=== PATIENT | female | born 1940 | race Caucasian/White ===

== ENCOUNTER → 2016-05-03 | Outpatient (CLI) | payer MEDICARE ==
--- NOTE | 2016-05-03 09:25 | BD ---
EXAMINATION TYPE: MG DEXA axial skeleton. DATE OF EXAM: 05/03/2016 8:37 AM COMPARISON: NONE CLINICAL HISTORY: Height: 66 IN Weight: 248 LBS FRAX RISK QUESTIONS: Alcohol (3 or more units per day): NO Family History (Parent hip fracture): NO Glucocorticoids (More than 3mos): NO (Ex: prednisone, prednisolone, methylprednisolone, dexamethasone, and hydrocortisone). History of Fracture in Adulthood: YES LEFT FOOT Secondary Osteoporosis: 1. Type 1 Diabetes: NO 2. Hyperthyroidism: NO 3. Menopause before 45: NO 4. Malnutrition: NO 5. Chronic liver disease: NO Rheumatoid Arthritis: NO Current Tobacco Use: NO RISK FACTORS HISTORY OF: Other Fractures since Age 50: YES LEFT FOOT When: AGE 66 Family History of Osteoporosis: NO Active: YES Postmenopausal woman: AGE 51 Take estrogen and/or progesterone medications: NOT NOW How long: AGE 51 - 66 MEDICATIONS: Additional Medications: VIT D, VIT C, PRADAXA, ATENOLOL, BIOTIN, ECHINECEA, GLUCOSAMINE EXAM MEASUREMENTS: Bone mineral densitometry was performed using the [employer] System. Bone mineral density as measured about the Lumbar spine is: ----- L1-L4(G/cm2): 1.401 T Score Values are as follows: ----- L2: 3.2 ----- L3: 2.5 ----- L4: 1.2 ----- L1-L4: 1.8 Bone mineral density has: Increased 5.3% since study of: 12/22/2010 Bone mineral density about the R hip (g/cm2): 0.978 Bone mineral density about the L hip (g/cm2): 1.032 T Score values are as follows: -----R Neck: -0.4 -----L Neck: 0.0 -----R Intertrochanter: -0.3 -----L Intertrochanter: 0.5 Bone mineral density has: Decreased -8.6% since study of: 12/22/2010 IMPRESSION: Normal (Values between +1 and -1 indicate normal bone mass) Fracture risk: Major osteoporotic fracture: 11.9% Hip fracture: 1.2% NOTE: T-SCORE=SD OF THE YOUNG ADULT MEAN.
--- NOTE | 2016-05-04 11:25 | MM ---
Reason for exam: screening (asymptomatic). Last mammogram was performed 2 years and 6 months ago. History: Patient is postmenopausal. Benign excisional biopsy of the left breast, April 2002. Took estrogen for 17 years 7 months. Physical Findings: A clinical breast exam by your physician is recommended on an annual basis and results should be correlated with mammographic findings. MG 3D Screening Mammo W/Cad Bilateral CC, MLO, and XCCL view(s) were taken. Prior study comparison: November 03, 2013, bilateral MG screening mammo w CAD. October 30, 2012, bilateral digital screening mammo w/CAD. There are scattered fibroglandular densities. No significant changes when compared with prior studies. ASSESSMENT: Benign, BI-RAD 2 RECOMMENDATION: Routine screening mammogram of both breasts in 1 year.
== END | disposition home or self-care (01) ==
LOC: RADMAMWWP 07:52
PROVIDERS: ATTEND Internal Medicine
DX: Z12.31 Encounter for screening mammogram for malignant neoplasm of breast (principal); Z78.0 Asymptomatic menopausal state
CPT/HCPCS: 77080; 77063; G0202

== ENCOUNTER 2016-06-01 06:56 | Day surgery (SDC) | payer MEDICARE ==
[2016-05-29 15:00] VITALS: BMI 37.5
[~2016-06-01 06:56] MED LIST: LACTATED RINGERS 1,000 ML IV SCH; LIDOCAINE 1% 20 ML VIAL (10MG/ML) FOR IV START INTRADERMA PRN
[2016-06-01 07:19] VITALS: RESP 16; TEMP 97
[2016-06-01] MEDS ORDERED: PROPOFOL 10 MG/ML 20 ML VIAL IV ONE (07:42)
--- NOTE | 2016-06-01 07:43 | P.GSHP ---
History of Present Illness H&P Date: 06/01/16 Chief Complaint: Screening colonoscopy This a 76-year-old female referred from Dr. Enriquez. Patient presents today for screening colonoscopy. The patient is unsure of when her last colonoscopy was. She says it's approximately 6-10 years ago. - Constitutional Constitutional: Reports as per HPI Past Medical History Past Medical History: Atrial Fibrillation, GERD/Reflux, Hypertension, Skin Disorder Additional Past Medical History / Comment(s): HX OF PSORIASIS, History of Any Multi-Drug Resistant Organisms: None Reported Past Surgical History: Cholecystectomy, Hernia Repair, Hysterectomy, Orthopedic Surgery Additional Past Surgical History / Comment(s): LEFT FOOT ORIF, MAYA CATARACTS Past Anesthesia/Blood Transfusion Reactions: Postoperative Nausea & Vomiting ( PONV) Past Psychological History: No Psychological Hx Reported Smoking Status: Former smoker Past Alcohol Use History: None Reported Additional Past Alcohol Use History / Comment(s): QUIT SMOKING AGE 30, (1969) SMOKED LESS THAN 1PPD FROM TEEN Past Drug Use History: None Reported - Past Family History Mother Family Medical History: No Reported History Medications and Allergies Home Medications Medication Instructions Recorded Confirmed Type Atenolol 25 mg PO HS 01/05/16 06/01/16 History Dabigatran [Pradaxa] 150 mg PO BID 01/05/16 06/01/16 History Echinacea 400 mg PO DAILY 02/03/16 06/01/16 History Multivitamins, Thera [Multivitamin] 1 tab PO DAILY 02/03/16 06/01/16 History Allergies Allergy/AdvReac Type Severity Reaction Status Date / Time No Known Allergies Allergy Verified 05/29/16 14:53 Surgical - Exam Vital Signs Temp Pulse Resp BP Pulse Ox 97.0 F L 71 16 146/74 99 06/01/16 07:17 06/01/16 07:17 06/01/16 07:17 06/01/16 07:17 06/01/16 07:17 - General well developed, no distress - Eyes PERRL - ENT normal pinna - Neck no masses - Respiratory normal expansion - Cardiovascular Rhythm: regular - Abdomen Abdomen: soft, non tender Assessment and Plan Plan: We'll perform screening colonoscopy.
--- NOTE | 2016-06-01 08:03 | P.OP ---
Date of Procedure: 06/01/16 Preoperative Diagnosis: Screening colonoscopy Postoperative Diagnosis: Diverticulosis Internal hemorrhoids Procedure(s) Performed: Colonoscopy Anesthesia: MAC Surgeon: Chandler Tna Pathology: none sent Condition: stable Disposition: PACU Description of Procedure: The patient's placed on the endoscopy table in the lateral position. She received IV sedation. Digital rectal exam was performed which revealed internal hemorrhoids.. The flexible colonoscope was then placed patient anus passed throughout the entire colon. The ileocecal valve was visualized. The cecum and ascending and transverse colon appeared normal. In the descending and sigmoid colon there is mild diverticular changes. There is no evidence of diverticulitis. The scope was then brought back into the rectum and this appeared normal. There were no polyps seen. Scope was then withdrawn and there was some internal hemorrhoids noted. The scope was withdrawn for patient.
[2016-06-01 08:40] VITALS: BP 129/77; PULSE 78
== END 2016-06-01 09:07 | disposition home or self-care (01) ==
LOC: ORWHC2ENDO 06:56
PROVIDERS: ATTEND Surgery
DX: Z12.11 Encounter for screening for malignant neoplasm of colon (principal); K57.30 Diverticulosis of large intestine without perforation or abscess without bleeding; K64.8 Other hemorrhoids; I10 Essential (primary) hypertension; E78.5 Hyperlipidemia, unspecified; I48.91 Unspecified atrial fibrillation; I49.9 Cardiac arrhythmia, unspecified; K21.9 Gastro-esophageal reflux disease without esophagitis; Z79.01 Long term (current) use of anticoagulants; Z79.891 Long term (current) use of opiate analgesic; Z79.899 Other long term (current) drug therapy; Z87.891 Personal history of nicotine dependence
CPT/HCPCS: G0121; J2704

== ENCOUNTER → 2017-08-09 | Outpatient (CLI) | payer MEDICARE | END | disposition home or self-care (01) | LOC: LABWHC1 10:27 | PROVIDERS: ATTEND Ophthalmology | DX: M31.6 Other giant cell arteritis (principal) | CPT/HCPCS: 36415; 85652; 86140 ==

== ENCOUNTER → 2019-09-10 | Outpatient (CLI) | payer MEDICARE ==
--- NOTE | 2019-09-11 09:52 | XR ---
EXAM TYPE: LUMBAR SPINE X RAY SERIES COMPARISON: NONE HISTORY: Low back pain TECHNIQUE: 3 views are submitted. FINDINGS: Alignment is anatomic. The pedicles are intact. The transverse processes are intact. There is no s pondylolisthesis. There is diffuse osteopenia. There is multilevel degenerative disc disease most ma rked at L2-S1. Degenerative disc disease thoracolumbar spine and lower thoracic region also noted. Mo tion artifact limits the exam. Vascular calcifications of the aorta. IMPRESSION: 1. Limited exam due to severe motion artifact demonstrates diffuse osteopenia and multilevel severe d egenerative disc disease. Correlate with MRI as clinically warranted. Suspect canal stenosis and fora ernesto encroachment and the lower lumbar spine..
== END | disposition home or self-care (01) ==
LOC: RADXRMAIN 14:01
PROVIDERS: ATTEND Internal Medicine Geriatric Medicine
DX: M51.36 Other intervertebral disc degeneration, lumbar region (principal); M85.88 Other specified disorders of bone density and structure, other site
CPT/HCPCS: 72100

== ENCOUNTER 2019-10-09 15:36 | Inpatient (IN) | payer MEDICARE ==
--- NOTE | 2019-10-09 16:00 | ED ---
Altered Mental Status HPI - General Chief Complaint: Altered Mental Status Stated Complaint: Altered Mental Status Time Seen by Provider: 10/09/19 16:05 - History of Present Illness Initial Comments: Patient is a 79-year-old female with past medical history of A. fib, hypertension who presents to the emergency department with reported altered mental status. She lives at [facility] in an independent apartment. Daughter last talked around 8:00 last night. also lives at the facility however in assisted care portion. He had a doctor's appointment today. The did not show up for his doctor's appointment and this was not normal for her. When they checked on her apartment they found her confused, sitting in a chair that she normally sleeps in. She had some urinary incontinence and there was a towel in her underwear. She was able to get up and ambulate to the stretcher. I spoke with the patient's daughter who stated that she was started on a bunch of new medications several weeks ago for sciatica pain. These include Restoril, [id number]-[id number] sleep aid, tramadol, baclofen and Motrin. The patient states that there is possibility that she could have taken too much however not in an attempt to harm herself. Patient does follow all commands. Does continue to clean of low back pain. Denies any falls or head trauma. Patient is on Pradaxa. No external signs of trauma. No reported fevers or chills. No unilateral weakness. Daughter states that her mother had an episode several weeks ago which was similar however they never sought care. Patient eventually improved and stated that she may have taken too many of the medications however the daughter did not remove them from her. The remainder patient has limited because the patient's current condition - Related Data Home Medications Medication Instructions Recorded Confirmed Atenolol 25 mg PO DAILY 01/05/16 10/09/19 Baclofen [Lioresal] 10 mg PO BID 10/09/19 10/09/19 Dabigatran [Pradaxa] 150 mg PO BID 10/09/19 10/09/19 Ibuprofen [Motrin] 600 mg PO TID PRN 10/09/19 10/09/19 PARoxetine [Paxil] 10 mg PO DAILY 10/09/19 10/09/19 Temazepam [Restoril] 15 mg PO HS PRN 10/09/19 10/09/19 amLODIPine [Norvasc] 5 mg PO DAILY 10/09/19 10/09/19 traMADol HCL 50 mg PO BID 10/09/19 10/09/19 Previous Rx's Medication Instructions Recorded Baclofen [Lioresal] 5 mg PO BID PRN #60 tab 10/11/19 HYDROcodone/APAP 5-325MG [Jay Em 1 each PO Q4HR PRN #0 tab 10/11/19 5-325] Allergies Allergy/AdvReac Type Severity Reaction Status Date / Time No Known Allergies Allergy Verified 10/09/19 17:39 Review of Systems ROS Statement: Those systems with pertinent positive or pertinent negative responses have been documented in the HPI. ROS Other: All systems not noted in ROS Statement are negative. Past Medical History Past Medical History: Atrial Fibrillation, GERD/Reflux, Hypertension, Skin Disorder Additional Past Medical History / Comment(s): HX OF PSORIASIS, History of Any Multi-Drug Resistant Organisms: None Reported Past Surgical History: Cholecystectomy, Hernia Repair, Hysterectomy, Orthopedic Surgery Additional Past Surgical History / Comment(s): LEFT FOOT ORIF, MAYA CATARACTS Past Anesthesia/Blood Transfusion Reactions: Postoperative Nausea & Vomiting (PONV) Past Psychological History: No Psychological Hx Reported Smoking Status: Former smoker Past Alcohol Use History: None Reported Additional Past Alcohol Use History / Comment(s): QUIT SMOKING AGE 30, (1970) SMOKED LESS THAN 1PPD FROM TEEN Past Drug Use History: None Reported - Past Family History Mother Family Medical History: No Reported History Father Additional Family Medical History / Comment(s): Father at age 87 from COPD. Sister(s) Additional Family Medical History / Comment(s): Patient is a total of 4 sisters and one aside from COPD. Patient does not have any brothers. Patient has 4 daughters and one has gallbladder disease and fibromyalgia. Other daughters with no major medical problems. Patient has one son with no major medical problems. General Exam Limitations: altered mental status General appearance: in no apparent distress, lethargic Head exam: Present: atraumatic, normocephalic Eye exam: Present: PERRL (sluggish), EOMI ENT exam: Present: mucous membranes dry Neck exam: Present: normal inspection. Absent: tenderness, meningismus, lymphadenopathy Respiratory exam: Present: normal lung sounds bilaterally. Absent: respiratory distress, wheezes, rales, rhonchi, stridor Cardiovascular Exam: Present: regular rate, normal rhythm, normal heart sounds. Absent: systolic murmur, diastolic murmur, rubs, gallop, clicks GI/Abdominal exam: Present: soft, normal bowel sounds. Absent: distended, tenderness, guarding, rebound, rigid Back exam: Present: normal inspection Neurological exam: Present: altered Psychiatric exam: Present: flat affect Skin exam: Present: warm, dry, intact, normal color. Absent: rash Course Vital Signs 10/09/19 10/09/19 10/09/19 16:03 16:08 18:12 Temperature 97.8 F Pulse Rate 96 80 64 Respiratory 18 16 15 Rate Blood Pressure 170/116 154/89 167/85 O2 Sat by Pulse 95 95 97 Oximetry Medical Decision Making - Medical Decision Making Upon arrival the patient is placed in room 3. There are history and physical exam was performed. Patient is able to be aroused. She knows that she is at the hospital however appears very sedated. She follows all commands. Patient is mildly hypertensive. Patient is straight cathed for urine and does have an output of 1000 mL. Artery studies are conducted. Sodium mildly low at 133. Urine is positive for benzodiazepines. Blood is negative for salicylates, acetaminophen and alcohol. Urine is clear of infection. CT of the brain demonstrates no acute intracranial hemorrhage or midline shift. Mild to mo derate diffuse cerebral atrophy. I did do a CT the patient's lumbar spinous she was started on medications recently for her back pain which demonstrated multilevel general changes with no acute findings. Chest x-ray demonstrates myocardial megaly without acute pulmonary process. I did reevaluate the patient. Does take sternal rub to awaken the patient. She does admit that she may have taken "too many" of her meds and does apologize. Patient is still heavily sedated and I feel she is not ready for discharge. I did recommend observation overnight for which the patient's daughter did agree. Patient will be admitted to Dr. Bailey. Patient awaiting a bed on the floor - Lab Data Result diagrams: 10/10/19 05:31 10/11/19 06:19 Lab Results 10/09/19 10/09/19 10/09/19 Range/Units 16:18 16:18 16:18 WBC 3.5 L (3.8-10.6) k/uL RBC 4.34 (3.80-5.40) m/uL Hgb 13.2 (11.4-16.0) gm/dL Hct 40.1 (34.0-46.0) % MCV 92.4 (80.0-100.0) fL MCH 30.4 (25.0-35.0) pg MCHC 32.9 (31.0-37.0) g/dL RDW 13.4 (11.5-15.5) % Plt Count 258 (150-450) k/uL Neutrophils % 61 % Lymphocytes % 22 % Monocytes % 9 % Eosinophils % 4 % Basophils % 1 % Neutrophils # 2.1 (1.3-7.7) k/uL Lymphocytes # 0.8 L (1.0-4.8) k/uL Monocytes # 0.3 (0-1.0) k/uL Eosinophils # 0.1 (0-0.7) k/uL Basophils # 0.0 (0-0.2) k/uL PT 9.7 (9.0-12.0) sec INR 0.9 (<1.2) APTT 20.6 L (22.0-30.0) sec Sodium (137-145) mmol/L Potassium (3.5-5.1) mmol/L Chloride (98-107) mmol/L Carbon Dioxide (22-30) mmol/L Anion Gap mmol/L BUN (7-17) mg/dL Creatinine (0.52-1.04) mg/dL Est GFR (CKD-EPI)AfAm (>60 ml/min/1.73 sqM) Est GFR (CKD-EPI)NonAf (>60 ml/min/1.73 sqM) Glucose (74-99) mg/dL Plasma Lactic Acid Anthony (0.7-2.0) mmol/L Calcium (8.4-10.2) mg/dL Total Bilirubin (0.2-1.3) mg/dL AST (14-36) U/L ALT (4-34) U/L Alkaline Phosphatase (38-126) U/L Ammonia (<30) umol/L Creatine Kinase (30-135) U/L Troponin I (0.000-0.034) ng/mL Total Protein (6.3-8.2) g/dL Albumin (3.5-5.0) g/dL Urine Color Light Yellow Urine Appearance Clear (Clear) Urine pH 6.5 (5.0-8.0) Ur Specific Brohard 1.004 (1.001-1.035) Urine Protein Negative (Negative) Urine Glucose (UA) Negative (Negative) Urine Ketones Negative (Negative) Urine Blood Negative (Negative) Urine Nitrite Negative (Negative) Urine Bilirubin Negative (Negative) Urine Urobilinogen <2.0 (<2.0) mg/dL Ur Leukocyte Esterase Negative (Negative) Salicylates mg/dL Urine Opiates Screen Not Detected (NotDetected) Ur Oxycodone Screen Not Detected (NotDetected) Urine Methadone Screen Not Detected (NotDetected) Ur Propoxyphene Screen Not Detected (NotDetected) Acetaminophen ug/mL Ur Barbiturates Screen Not Detected (NotDetected) U Tricyclic Antidepress Not Detected (NotDetected) Ur Phencyclidine Scrn Not Detected (NotDetected) Ur Amphetamines Screen Not Detected (NotDetected) U Methamphetamines Scrn Not Detected (NotDetected) U Benzodiazepines Scrn Detected H (NotDetected) Urine Cocaine Screen Not Detected (NotDetected) U Marijuana (THC) Screen Not Detected (NotDetected) Serum Alcohol mg/dL Coronavirus (PCR) (Not Detected) 10/09/19 10/09/19 10/09/19 Range/Units 16:18 16:18 16:18 WBC (3.8-10.6) k/uL RBC (3.80-5.40) m/uL Hgb (11.4-16.0) gm/dL Hct (34.0-46.0) % MCV (80.0-100.0) fL MCH (25.0-35.0) pg MCHC (31.0-37.0) g/dL RDW (11.5-15.5) % Plt Count (150-450) k/uL Neutrophils % % Lymphocytes % % Monocytes % % Eosinophils % % Basophils % % Neutrophils # (1.3-7.7) k/uL Lymphocytes # (1.0-4.8) k/uL Monocytes # (0-1.0) k/uL Eosinophils # (0-0.7) k/uL Basophils # (0-0.2) k/uL PT (9.0-12.0) sec INR (<1.2) APTT (22.0-30.0) sec Sodium 133 L (137-145) mmol/L Potassium 4.1 (3.5-5.1) mmol/L Chloride 100 (98-107) mmol/L Carbon Dioxide 27 (22-30) mmol/L Anion Gap 6 mmol/L BUN 11 (7-17) mg/dL Creatinine 0.44 L (0.52-1.04) mg/dL Est GFR (CKD-EPI)AfAm >90 (>60 ml/min/1.73 sqM) Est GFR (CKD-EPI)NonAf >90 (>60 ml/min/1.73 sqM) Glucose 113 H (74-99) mg/dL Plasma Lactic Acid Anthony 0.9 (0.7-2.0) mmol/L Calcium 9.0 (8.4-10.2) mg/dL Total Bilirubin 0.4 (0.2-1.3) mg/dL AST 32 (14-36) U/L ALT 37 H (4-34) U/L Alkaline Phosphatase 66 (38-126) U/L Ammonia <9 (<30) umol/L Creatine Kinase 34 (30-135) U/L Troponin I <0.012 (0.000-0.034) ng/mL Total Protein 5.8 L (6.3-8.2) g/dL Albumin 3.5 (3.5-5.0) g/dL Urine Color Urine Appearance (Clear) Urine pH (5.0-8.0) Ur Specific Brohard (1.001-1.035) Urine Protein (Negative) Urine Glucose (UA) (Negative) Urine Ketones (Negative) Urine Blood (Negative) Urine Nitrite (Negative) Urine Bilirubin (Negative) Urine Urobilinogen (<2.0) mg/dL Ur Leukocyte Esterase (Negative) Salicylates <1.0 mg/dL Urine Opiates Screen (NotDetected) Ur Oxycodone Screen (NotDetected) Urine Methadone Screen (NotDetected) Ur Propoxyphene Screen (NotDetected) Acetaminophen <10.0 ug/mL Ur Barbiturates Screen (NotDetected) U Tricyclic Antidepress (NotDetected) Ur Phencyclidine Scrn (NotDetected) Ur Amphetamines Screen (NotDetected) U Methamphetamines Scrn (NotDetected) U Benzodiazepines Scrn (NotDetected) Urine Cocaine Screen (NotDetected) U Marijuana (THC) Screen (NotDetected) Serum Alcohol <10 mg/dL Coronavirus (PCR) (Not Detected) 10/09/19 10/10/19 10/10/19 Range/Units 18:01 05:31 05:31 WBC 4.3 (3.8-10.6) k/uL RBC 4.20 (3.80-5.40) m/uL Hgb 12.5 (11.4-16.0) gm/dL Hct 38.8 (34.0-46.0) % MCV 92.5 (80.0-100.0) fL MCH 29.7 (25.0-35.0) pg MCHC 32.1 (31.0-37.0) g/dL RDW 13.3 (11.5-15.5) % Plt Count 247 (150-450) k/uL Neutrophils % 76 % Lymphocytes % 13 % Monocytes % 6 % Eosinophils % 2 % Basophils % 0 % Neutrophils # 3.3 (1.3-7.7) k/uL Lymphocytes # 0.6 L (1.0-4.8) k/uL Monocytes # 0.3 (0-1.0) k/uL Eosinophils # 0.1 (0-0.7) k/uL Basophils # 0.0 (0-0.2) k/uL PT (9.0-12.0) sec INR (<1.2) APTT (22.0-30.0) sec Sodium 129 L (137-145) mmol/L Potassium 3.8 (3.5-5.1) mmol/L Chloride 98 (98-107) mmol/L Carbon Dioxide 28 (22-30) mmol/L Anion Gap 3 mmol/L BUN 9 (7-17) mg/dL Creatinine 0.39 L (0.52-1.04) mg/dL Est GFR (CKD-EPI)AfAm >90 (>60 ml/min/1.73 sqM) Est GFR (CKD-EPI)NonAf >90 (>60 ml/min/1.73 sqM) Glucose 118 H (74-99) mg/dL Plasma Lactic Acid Anthony (0.7-2.0) mmol/L Calcium 8.3 L (8.4-10.2) mg/dL Total Bilirubin (0.2-1.3) mg/dL AST (14-36) U/L ALT (4-34) U/L Alkaline Phosphatase (38-126) U/L Ammonia (<30) umol/L Creatine Kinase (30-135) U/L Troponin I (0.000-0.034) ng/mL Total Protein (6.3-8.2) g/dL Albumin (3.5-5.0) g/dL Urine Color Urine Appearance (Clear) Urine pH (5.0-8.0) Ur Specific Brohard (1.001-1.035) Urine Protein (Negative) Urine Glucose (UA) (Negative) Urine Ketones (Negative) Urine Blood (Negative) Urine Nitrite (Negative) Urine Bilirubin (Negative) Urine Urobilinogen (<2.0) mg/dL Ur Leukocyte Esterase (Negative) Salicylates mg/dL Urine Opiates Screen (NotDetected) Ur Oxycodone Screen (NotDetected) Urine Methadone Screen (NotDetected) Ur Propoxyphene Screen (NotDetected) Acetaminophen ug/mL Ur Barbiturates Screen (NotDetected) U Tricyclic Antidepress (NotDetected) Ur Phencyclidine Scrn (NotDetected) Ur Amphetamines Screen (NotDetected) U Methamphetamines Scrn (NotDetected) U Benzodiazepines Scrn (NotDetected) Urine Cocaine Screen (NotDetected) U Marijuana (THC) Screen (NotDetected) Serum Alcohol mg/dL Coronavirus (PCR) Not Detected (Not Detected) - EKG Data EKG Comments: EKG demonstrates a normal sinus rhythm with a ventricular rate of 90. UT interval 152. QRS 108. QTC of 435. Incomplete left bundle-branch block. No acute ST segment elevations or depressions. No widening of the QRS. Disposition Clinical Impression: Acute anoxic encephalopathy, Medication adverse effect Disposition: ADMITTED IP TO THIS [facility] Condition: Stable Is patient prescribed a controlled substance at d/c from ED?: No Decision to Admit Reason: Admit from EC Decision Date: 10/09/19 Decision Time: 17:53
[2019-10-09] MEDS ORDERED: SODIUM CHLORIDE 0.9% 500 ML 500 ML IV ONE (16:02)
[2019-10-09 16:31] LABS: Basophils % (A) 1 %; Eosinophils # (A) 0.1 k/uL (0-0.7); Eosinophils % (A) 4 %; HCT 40.1 % (34.0-46.0); HGB 13.2 gm/dL (11.4-16.0); Lymphocytes # (A) 0.8 k/uL (1.0-4.8); Lymphocytes % (A) 22 %; MCH 30.4 pg (25.0-35.0); MCHC 32.9 g/dL (31.0-37.0); MCV 92.4 fL (80.0-100.0); Mean Platelet Volume 6.1; Monocytes # (A) 0.3 k/uL (0-1.0); Monocytes % (A) 9 %; Neutrophils # (A) 2.1 k/uL (1.3-7.7); Neutrophils % (A) 61 %; Platelet Count 258 k/uL (150-450); RBC 4.34 m/uL (3.80-5.40); RDW 13.4 % (11.5-15.5); WBC 3.5 k/uL (3.8-10.6)
[2019-10-09 16:33] LABS: Appearance,Urine Clear (Clear); Bilirubin,Urine Negative (Negative); Blood,Urine Negative (Negative); Color,Urine Light Yellow; Glucose,Urine (UA) Negative (Negative); Ketones,Urine Negative (Negative); Leukocyte Esterase,Urine Negative (Negative); Nitrite,Urine Negative (Negative); PH, Urine 6.5 (5.0-8.0); Protein,Urine Negative (Negative); Specific Gravity,Urine 1.004 (1.001-1.035); Urobilinogen,Urine <2.0 mg/dL (<2.0)
--- NOTE | 2019-10-09 16:40 | CT ---
EXAMINATION TYPE: CT brain wo con DATE OF EXAM: 10/09/2019 HISTORY: Lethargic, ams CT DLP: 1098.4 mGycm. Automated Exposure Control for Dose Reduction was Utilized. TECHNIQUE: CT scan of the head is performed without contrast. COMPARISON: None. FINDINGS: There is no acute intracranial hemorrhage or midline shift identified. There is diffuse v entricular and sulcal prominence consistent with diffuse cerebral atrophy greatest over bilateral fro ntal lobes. There is low-attenuation in the periventricular white matter consistent with chronic sma ll vessel ischemic change. The globes are intact and the visualized sinuses are clear. IMPRESSION: No acute intracranial hemorrhage or midline shift. There is mild to moderate diffuse ce rebral atrophy and mild chronic small vessel ischemic change noted.
[2019-10-09 16:44] LABS: Lactic Acid, Venous 0.9 mmol/L (0.7-2.0)
--- NOTE | 2019-10-09 16:44 | CT ---
EXAMINATION TYPE: CT lumbar spine wo con DATE OF EXAM: 10/09/2019 4:36 PM COMPARISON: Lumbar spine x-ray September 10, 2019. HISTORY: Lethargic, ams, weakness and pain. CT DLP: 1591.6 mGycm Automated exposure control for dose reduction was used. Unenhanced CT of the lumbar spine was performed. Bone and soft tissue window settings are submitted as well as coronal and sagittal reconstructions. There are 5 lumbar type vertebra redemonstrated. Slight exaggerated lumbar lordosis is present. Moder ate disc space narrowing with vacuum disc phenomenon L2-L3 level redemonstrated. Vertebral body heigh ts are maintained. No acute fracture or dislocation. Mild to moderate multilevel anterior and lateral spurring. Axial images at T12-L1 and L1-L2 levels are within normal limits. L2-L3: Mild broad disc bulge minimally effaces the anterior thecal sac axial image 28.. L3-L4: [id number] broad disc bulge effaces the anterior thecal sac. Cyun-tj-[id number] facet dege nerative changes identified hypertrophy based posterior lateral thecal sac axial image 38. Mild bilat eral anterior inferior neural foraminal narrowing. L4-L5: Moderate facet arthropathy bilaterally. Moderate broad disc bulge effacing the anterior thecal sac. Vgqg-[id number]-afgsjvip right-sided and anterior inferior neural foraminal narrowing. L5-S1: Moderate facet degenerative changes bilaterally. Spinal canal preserved. Patent bilateral neur al foramina. Mild to moderate calcified plaque of the abdominal aorta. IMPRESSION: Multilevel degenerative changes as detailed above. No acute findings identified.
[2019-10-09 16:45] LABS: ALT 37 U/L (4-34); AST 32 U/L (14-36); Acetaminophen <10.0 ug/mL; African American GFR (CKD) >90 (>60 ml/min/1.73 sqM); Albumin 3.5 g/dL (3.5-5.0); Alcohol <10 mg/dL; Alkaline Phosphatase 66 U/L (38-126); Anion Gap 6 mmol/L; Blood Urea Nitrogen 11 mg/dL (7-17); Carbon Dioxide 27 mmol/L (22-30); Chloride 100 mmol/L (98-107); Creatine Kinase 34 U/L (30-135); Glucose 113 mg/dL (74-99); Non-African American GFR(CKD) >90 (>60 ml/min/1.73 sqM); Potassium 4.1 mmol/L (3.5-5.1); Salicylate <1.0 mg/dL; Sodium 133 mmol/L (137-145); Total Bilirubin 0.4 mg/dL (0.2-1.3); Total Protein 5.8 g/dL (6.3-8.2)
[2019-10-09 16:50] LABS: INR 0.9 (<1.2); Prothrombin Time 9.7 sec (9.0-12.0)
--- NOTE | 2019-10-09 16:51 | XR ---
EXAMINATION TYPE: XR chest 2V DATE OF EXAM: 10/09/2019 COMPARISON: NONE HISTORY: Altered mental status and weakness. TECHNIQUE: Frontal and lateral views of the chest are obtained. FINDINGS: Low lung volumes. There is no focal air space opacity, pleural effusion, or pneumothorax se en. The cardiac silhouette size is mildly enlarged. Bilateral hilar prominence suggests product of u nderlying pulmonary hypertension, correlate clinically. The osseous structures are somewhat deminer alized. IMPRESSION: Mild cardiomegaly without acute pulmonary process.
[2019-10-09 16:54] LABS: Amphetamine Screen,Urine Not Detected (NotDetected); Barbiturate Screen,Urine Not Detected (NotDetected); Benzodiazepines Screen,Urine Detected (NotDetected); Cocaine Screen,Urine Not Detected (NotDetected); Methadone Screen, Urine Not Detected (NotDetected); Opiate Screen,Urine Not Detected (NotDetected); Oxycodone Screen, Urine Not Detected (NotDetected); Phencyclidine Screen,Urine Not Detected (NotDetected); Tricyclic Antidepressant,Urine Not Detected (NotDetected); Urn Cannabinoid Scrn Not Detected (NotDetected)
[2019-10-09 16:55] LABS: Partial Thromboplastin Time 20.6 sec (22.0-30.0)
[2019-10-09] MEDS ORDERED: NALOXONE 0.4 MG/ML 1 ML VIAL IV PRN (17:49)
[2019-10-09] MEDS: DABIGATRAN 150 MG CAP PO SCH (20:29)
[2019-10-09] MEDS: SODIUM CHLORIDE 0.9% 1,000 ML IV SCH (20:32)
[2019-10-09] MEDS ORDERED: KETOROLAC 30 MG/ML 1 ML VIAL IVP PRN ×2 (21:49→22:37)
[2019-10-09] MEDS: KETOROLAC 30 MG/ML 1 ML VIAL IVP PRN (22:52)
[2019-10-10] MEDS: KETOROLAC 30 MG/ML 1 ML VIAL IVP PRN (05:00)
[2019-10-10 06:28] LABS: Basophils % (A) 0 %; Eosinophils # (A) 0.1 k/uL (0-0.7); Eosinophils % (A) 2 %; HCT 38.8 % (34.0-46.0); HGB 12.5 gm/dL (11.4-16.0); Lymphocytes # (A) 0.6 k/uL (1.0-4.8); Lymphocytes % (A) 13 %; MCH 29.7 pg (25.0-35.0); MCHC 32.1 g/dL (31.0-37.0); MCV 92.5 fL (80.0-100.0); Mean Platelet Volume 6.2; Monocytes # (A) 0.3 k/uL (0-1.0); Monocytes % (A) 6 %; Neutrophils # (A) 3.3 k/uL (1.3-7.7); Neutrophils % (A) 76 %; Platelet Count 247 k/uL (150-450); RDW 13.3 % (11.5-15.5); WBC 4.3 k/uL (3.8-10.6)
[2019-10-10 06:31] LABS: African American GFR (CKD) >90 (>60 ml/min/1.73 sqM); Anion Gap 3 mmol/L; Blood Urea Nitrogen 9 mg/dL (7-17); Calcium 8.3 mg/dL (8.4-10.2); Carbon Dioxide 28 mmol/L (22-30); Chloride 98 mmol/L (98-107); Glucose 118 mg/dL (74-99); Non-African American GFR(CKD) >90 (>60 ml/min/1.73 sqM); Potassium 3.8 mmol/L (3.5-5.1); Sodium 129 mmol/L (137-145)
[2019-10-10] MEDS ORDERED: Acetaminophen-Codeine 300-30mg TAB PO PRN (08:02)
[2019-10-10] MEDS ORDERED: BACLOFEN 10 MG TAB PO PRN (08:02)
[2019-10-10] MEDS: HYDROcodone/APAP 5-325MG 1 EACH TAB PO PRN ×2 (08:56→16:44)
[2019-10-10] MEDS: SODIUM CHLORIDE 0.9% 1,000 ML IV SCH ×2 (08:57→20:08)
[2019-10-10] MEDS: atenoloL 25 MG TAB PO SCH (08:58)
[2019-10-10] MEDS: DABIGATRAN 150 MG CAP PO SCH ×2 (08:59→20:06)
[2019-10-10] MEDS ORDERED: amLODIPine 5 MG TAB PO SCH (09:00)
[2019-10-10] MEDS: PARoxetine 10 MG TAB PO SCH (09:03)
[2019-10-10] MEDS: dexAMETHasone 4 MG TAB PO SCH ×2 (09:03→20:06)
[2019-10-10 10:19] VITALS: RESP 16
[2019-10-10] MEDS ORDERED: amLODIPine 5 MG TAB PO STA (13:52)
--- NOTE | 2019-10-10 14:02 | P.HPIM ---
History of Present Illness H&P Date: 10/10/19 History of Present Illness This is a 79-year-old female patient of Dr. Bailey with past medical history of paroxysmal atrial fibrillation on Pradaxa, hypertension. Patient has been recently seen in the office secondary to lumbar back pain and started on steroids which patient states she completed as well as baclofen and tramadol. Patient states tramadol did not help her pain at all. She was also started on Restoril for sleep. She presented to [facility] emergency center due to altered mental status. She resides at [facility] in an independent apartment and cares for her with dementia but he is in assisted care. Patient did not show up for her 's doctor's appointment which was very unusual for her. Her daughter checked on her and she was found sitting in a chair that she normally sleeps in. She had some urinary incontine nce and there was a towel in her underwear. She was able to get up and ambulate to the stretcher for EMS. Patient was brought into [facility] emergency center for evaluation. Her initial blood pressure was 170/116, heart rate 96, pulse ox 95% on room air and afebrile. Patient was straight cathed with removal of 1000 ML's. Blood work revealed urine drug screen positive for benzodiazepines. Negative for salicylates, acetaminophen and alcohol level. Urine did not show any sign of UTI. CAT scan of the brain revealed no acute intracranial hemorrhage or midline shift. Mild to moderate diffuse cerebral atrophy with mild chronic ischemic changes. Chest x-ray showed mild cardiomegaly with without acute pulmonary process. Lumbar sacral CAT scan revealed multilevel degenerative changes. WBC 3.4, hemoglobin 13.2. Sodium 133, potassium 4.1, chloride 100, CO2 27, BUN 11 creatinine 0.44. Blood sugar 113. EKG was a sinus rhythm with no acute ST changes. Patient continued to be quite sedated while in the emergency center and was decided she would be placed on the MedSur floor for further evaluation. At the time of our evaluation, patient complains of lumbar pain and buttocks pain 10 out of 10 on the left side. She does not recall anything from yesterday. She does know that she was confused. Review of Systems Constitutional: No fever, no chills, no night sweats. No weight change. No weakness, fatigue, reports lethargy. No daytime sleepiness. EENT: No headache. No blurred vision or double vision, no loss of vision. No loss of Hearing, no ringing in the ears, no dizziness. No nasal drainage or congestion. No epistaxis. No sore throat. Lungs: No shortness of breath, cough, no sputum production. No wheezing. Cardiovascular: No chest pain, no lower extremity edema. No palpitations. No paroxysmal nocturnal dyspnea. No orthopnea. No lightheadedness or dizziness. No syncopal episodes. Abdominal: No abdominal pain. No nausea, vomiting. No diarrhea. No constipation. No bloody or tarry stools.. No loss of appetite. Genitourinary: No dysuria, increased frequency, urgency. Reports urinary retention. Denies loss of control of urination, defecation. Musculoskeletal: No myalgias. No muscle weakness, no gait dysfunction, no frequent falls. Reports severe lumbar back pain. No neck pain. Integumentary: No wounds, no lesions. No rash or pruritus. No unusual bruising. No change in hair or nails. Neurologic: No aphasia. No facial droop. Reports change in mentation. No head injury. No headache. No paralysis. No paresthesia. Psychiatric: No depression. No anxiety. No mood swings. Endocrine: No abnormal blood sugars. No weight change. No excessive sweating or thirst. No cold intolerance. Physical Examination Gen: This is a 79-year-old female. Patient is resting in bed and appears to be comfortable and in no acute distress. HEENT: Head is atraumatic, normocephalic. Pupils equal, round. Sclerae is anicteric. NECK: Supple. No JVD. No lymphadenopathy. No thyromegaly. LUNGS: Clear to auscultation. No wheezes or rhonchi. No intercostal retractions. HEART: Regular rate and rhythm. Systolic murmur. ABDOMEN: Soft. Bowel sounds are present. No masses. No tenderness. EXTREMITIES: No pedal edema. No calf tenderness. Dorsalis pedis +2 bilaterally. NEUROLOGICAL: Patient is awake, alert and oriented x3. Cranial nerves 2 through 12 are grossly intact. Upper and lower extremity strength normal bilaterally. Assessment and Plan 1. Uncontrolled lumbar pain secondary to multilevel degenerative disc disease. Patient will be started on dexamethasone 4 mg oral twice daily, Thompson 5 one every 4 hours as needed, continue Toradol IV, baclofen will be reduced to 5 mg twice daily. Tramadol will be discontinued. Physical therapy evaluation for safety at home. Pain management consult is in place but unavailable until Sunday. 2. Acute toxic metabolic encephalopathy secondary to medications: Combination of Restoril, baclofen, tramadol, steroid. Restoril will be completely discontinued. Reduced dose of baclofen and change tramadol to Thompson. Patient's mental status is back to baseline. 3. Paroxysmal atrial fibrillation. Continue Pradaxa 150 mg twice daily, atenolol 25 mg daily. 4. Uncontrolled hypertension. Continue Norvasc at increased dose of 10 mg daily. Continue atenolol. 5. Urinary retention status post straight cath for urinalysis with 1000 mL return. Monitor for urinary retention. 6. GI prophylaxis. Protonix. 7. DVT prophylaxis. Pradaxa. 8. COVID-19 infection not present. Patient placed as Observation status. Anticipate discharge home tomorrow. Discharge plan: Most likely return home on Sunday. Impression and plan of care have been directed as dictated by the signing physician. Kristie Garza nurse practitioner acting as scribe for signing physician. Past Medical History Past Medical History: Atrial Fibrillation, GERD/Reflux, Hypertension, Skin Disorder Additional Past Medical History / Comment(s): HX OF PSORIASIS, DDD, sciatic nerve pain History of Any Multi-Drug Resistant Organisms: None Reported Past Surgical History: Cholecystectomy, Hernia Repair, Hysterectomy, Orthopedic Surgery Additional Past Surgical History / Comment(s): LEFT FOOT ORIF, MAYA CATARACTS Past Anesthesia/Blood Transfusion Reactions: Postoperative Nausea & Vomiting (PONV) Smoking Status: Former smoker Additional Past Alcohol Use History / Comment(s): The patient smoked one pack per day for about 12 years. No marijuana, illicit drug use or alcohol use. She lives at home at [facility] as caregiver for her with dementia. - Past Family History Mother Family Medical History: No Reported History Additional Family Medical History / Comment(s): Mother at age 86 from coronary artery disease. Father Additional Family Medical History / Comment(s): Father at age 87 from COPD. Sister(s) Additional Family Medical History / Comment(s): Patient is a total of 4 sisters and one aside from COPD. Patient does not have any brothers. Patient has 4 daughters and one has gallbladder disease and fibromyalgia. Other daughters with no major medical problems. Patient has one son with no major medical problems. Medications and Allergies Home Medications Medication Instructions Recorded Confirmed Type Atenolol 25 mg PO DAILY 01/05/16 10/09/19 History Baclofen [Lioresal] 10 mg PO BID 10/09/19 10/09/19 History Dabigatran [Pradaxa] 150 mg PO BID 10/09/19 10/09/19 History Ibuprofen [Motrin] 600 mg PO TID PRN 10/09/19 10/09/19 History PARoxetine [Paxil] 10 mg PO DAILY 10/09/19 10/09/19 History Temazepam [Restoril] 15 mg PO HS PRN 10/09/19 10/09/19 History amLODIPine [Norvasc] 5 mg PO DAILY 10/09/19 10/09/19 History traMADol HCL 50 mg PO BID 10/09/19 10/09/19 History Allergies Allergy/AdvReac Type Severity Reaction Status Date / Time No Known Allergies Allergy Verified 10/09/19 17:39 Physical Exam Vitals: Vital Signs Temp Pulse Pulse Resp BP BP Pulse Ox 10/10/19 05:44 96.2 F L 74 16 160/87 97 10/09/19 21:03 97.4 F L 72 16 165/97 95 10/09/19 18:29 64 15 167/85 97 10/09/19 18:12 64 15 167/85 97 10/09/19 16:08 80 16 154/89 95 10/09/19 16:03 97.8 F 96 18 170/116 95 Intake and Output 10/09/19 10/10/19 10/10/19 22:59 06:59 14:59 Intake Total 75 590 Balance 75 590 Intake: Intake, IV Titration 75 Amount Sodium Chloride 0.9% 1, 75 000 ml @ 75 mls/hr IV . [id number] [facility] Rx#:[id number] Oral 590 Other: Voiding Method Bedside Commode # Voids 1 2 Weight 108 kg Results CBC & Chem 7: 10/10/19 05:31 10/10/19 05:31 Labs: Abnormal Lab Results - Last 24 Hours (Table) 10/09/19 10/09/19 10/09/19 Range/Units 16:18 16:18 16:18 WBC 3.5 L (3.8-10.6) k/uL Lymphocytes # 0.8 L (1.0-4.8) k/uL APTT 20.6 L (22.0-30.0) sec Sodium (137-145) mmol/L Creatinine (0.52-1.04) mg/dL Glucose (74-99) mg/dL Calcium (8.4-10.2) mg/dL ALT (4-34) U/L Total Protein (6.3-8.2) g/dL U Benzodiazepines Scrn Detected H (NotDetected) 10/09/19 10/10/19 10/10/19 Range/Units 16:18 05:31 05:31 WBC (3.8-10.6) k/uL Lymphocytes # 0.6 L (1.0-4.8) k/uL APTT (22.0-30.0) sec Sodium 133 L 129 L (137-145) mmol/L Creatinine 0.44 L 0.39 L (0.52-1.04) mg/dL Glucose 113 H 118 H (74-99) mg/dL Calcium 8.3 L (8.4-10.2) mg/dL ALT 37 H (4-34) U/L Total Protein 5.8 L (6.3-8.2) g/dL U Benzodiazepines Scrn (NotDetected) Thrombosis Risk Factor Assmnt - Choose All That Apply Any of the Below Risk Factors Present?: Yes Each Factor Represents 1 point: Obesity (BMI >25) Other Risk Factors: Yes Each Risk Factor Represents 3 Points: Age 75 years or older Other congenital or acquired thrombophilia - If yes, enter type in comment: No Thrombosis Risk Factor Assessment Total Risk Factor Score: 4 Thrombosis Risk Factor Assessment Level: Moderate Risk
--- NOTE | 2019-10-10 20:00 | P.PAINCN ---
History of Present Illness - Reason for Consult Consult date: 10/10/19 Pain - Chief Complaint Left buttock pain - History of Present Illness Patient was seen this evening at 19:10 Mrs. Blackwood presented to the emergency room yesterday for low back pain as well as altered mental status. The patient reports that she was at home and developed sharp pain in her back radiating into her buttock. She reports because of that she took a tramadol, a muscle relaxant, and a sleeping pill. She does unsure exactly what they were. She apparently began to hallucinate. She reports that the pain she had was a sharp pain that radiated into her left buttock and not beyond that. She denied any overt lower extremity weakness, bowel or bladder incontinence, or upper extremity weakness. She reports never had a pain like this before. The pain is still there today. She described the pinpoint location over the left buttock overlying the ischial spine. The area is tender to palpation. There is no pain in the lower extremity. She is able to move the hip freely. She is able to roll on her side freely. Review of Systems Negative except as noted in the HPI Past Medical History Past Medical History: Atrial Fibrillation, GERD/Reflux, Hypertension, Skin Disorder Additional Past Medical History / Comment(s): HX OF PSORIASIS, DDD, sciatic nerve pain History of Any Multi-Drug Resistant Organisms: None Reported Past Surgical History: Cholecystectomy, Hernia Repair, Hysterectomy, Orthopedic Surgery Additional Past Surgical History / Comment(s): LEFT FOOT ORIF, MAYA CATARACTS Past Anesthesia/Blood Transfusion Reactions: Postoperative Nausea & Vomiting (PONV) Smoking Status: Former smoker Additional Past Alcohol Use History / Comment(s): The patient smoked one pack per day for about 12 years. No marijuana, illicit drug use or alcohol use. She lives at home at [facility] as caregiver for her with dementia. - Past Family History Mother Family Medical History: No Reported History Additional Family Medical History / Comment(s): Mother at age 86 from coronary artery disease. Father Additional Family Medical History / Comment(s): Father at age 87 from COPD. Sister(s) Additional Family Medical History / Comment(s): Patient is a total of 4 sisters and one aside from COPD. Patient does not have any brothers. Patient has 4 daughters and one has gallbladder disease and fibromyalgia. Other daughters with no major medical problems. Patient has one son with no major medical problems. Medications and Allergies Home Medications Medication Instructions Recorded Confirmed Type Atenolol 25 mg PO DAILY 01/05/16 10/09/19 History Baclofen [Lioresal] 10 mg PO BID 10/09/19 10/09/19 History Dabigatran [Pradaxa] 150 mg PO BID 10/09/19 10/09/19 History Ibuprofen [Motrin] 600 mg PO TID PRN 10/09/19 10/09/19 History PARoxetine [Paxil] 10 mg PO DAILY 10/09/19 10/09/19 History Temazepam [Restoril] 15 mg PO HS PRN 10/09/19 10/09/19 History amLODIPine [Norvasc] 5 mg PO DAILY 10/09/19 10/09/19 History traMADol HCL 50 mg PO BID 10/09/19 10/09/19 History Allergies Allergy/AdvReac Type Severity Reaction Status Date / Time No Known Allergies Allergy Verified 10/09/19 17:39 Physical Exam Vitals: Vital Signs Temp Pulse Resp BP Pulse Ox 10/10/19 13:53 98.7 F 97 16 148/78 97 10/10/19 05:44 96.2 F L 74 16 160/87 97 10/09/19 21:03 97.4 F L 72 16 165/97 95 Intake and Output 10/10/19 10/10/19 10/10/19 06:59 14:59 22:59 Intake Total 590 Balance 590 Intake: Oral 590 Other: Voiding Method Bedside Commode Bedside Commode Bedside Commode # Voids 2 2 General: Awake and alert oriented laying comfortably in bed Respiratory exam: No audible wheezing no accessory muscle usage Cardiovascular exam: regular rate, palpable bilateral pulses, positive lower extremity edema Abdominal exam: No distention nontender to palpation Cervical spine: Normal alignment, Spurling's negative, facet loading negative, Legal Cashier strength is 5/5, reyna negative Lumbar spine: Spine appears to be in the midline, there is a loss of lordosis. There is atrophy of the paraspinal muscles with an obese An obese lower extremities. There is no tenderness to palpation over the midline or paraspinal muscles. Sacroiliac joints: Nontender to palpation, ELMA is negative, Gaenselon negative Hip range of motion is limited but there is no pain with internal and external rotation. There is point tenderness over the left buttock area overlying the ischial spine. There is no erythema or fluctuance. The patient did have a heat pad over the area. Neuro exam: Normal sensation in bilateral upper extremities, deep tendon reflexes are 2+ bilateral upper extremities. Normal sensation in bilateral lower extremities. Deep tendon reflexes are 2+ in lower extremities Psych exam: Cooperative, appropriate mood Results CBC & Chem 7: 10/10/19 05:31 10/10/19 05:31 Labs: Abnormal Lab Results - Last 24 Hours (Table) 10/10/19 10/10/19 Range/Units 05:31 05:31 Lymphocytes # 0.6 L (1.0-4.8) k/uL Sodium 129 L (137-145) mmol/L Creatinine 0.39 L (0.52-1.04) mg/dL Glucose 118 H (74-99) mg/dL Calcium 8.3 L (8.4-10.2) mg/dL Assessment and Plan Assessment: #1 low back pain #2 possible ischial bursitis #3 possible musculoskeletal strain left leg Plan: At this point are reviewed with the patient medication safety issues, we discussed that this is likely due to ischial spine pain. It's unlikely to be coming from her lumbar spine since she is tender in the area. She does have significant degeneration of the lumbar spine. I do not believe this is the cause of her injury. At this time I would recommend discharge home with non- opioid medications. I would suggest ice to the area, soft seating under her left buttock while recumbent. I would also suggest none steroid anti- inflammatory medications which may include Motrin 800 mg 2-3 times a day for the next 3 days. She could follow up with us in the pain clinic here [facility]. Time with Patient: Less than 30 PQRS Measure Charge Sheet Measure #130: Documentation of Current Meds in Medical Chart: Patient's med ications documented in chart Measure #226: Tobacco Use: Screen & Cessation Intervention: Pt not a tobacco user Measure #111: Pneumonia Vaccination: Pneumococcal vaccine NOT administered or previously given Measure #47: Advance Care Plan: Advance care planning discussed & documented, plan or surrogate given Measure #412: Opioid Treatment Agreement: No documentation of signed opioid treatment agreement Measure #408: Opioid Therapy Follow-up Evaluation: Patient had NO f/u eval minimum every 3 months during opioid therapy Measure #317: Preventitive Care & Scrn High Bld Press & F/U: Normal blood pressure, f/u not required Measure #128: Body Mass Index (BMI) Screening & Follow-up: BMI documented within normal parameters Measure #131: Pain Assessment & Follow-up: Pain positive & plan documented Measure #431: Unhealthy Alcohol Use Preventative Care & Scrn: Patient not id entified as an unhealthy alcohol user PQRS Narrative: Smoking Status Former smoker Blood Pressure [Left Arm] 148/78 Blood Pressure 167/85 Pain Intensity [None] 10 Pain Intensity 3 Pain Scale Used Numeric (1 - 10) Scale Used Numeric (1 - 10) Home Medications: Ambulatory Orders Atenolol 25 mg PO DAILY 01/05/16 Baclofen [Lioresal] 10 mg PO BID 10/09/19 Dabigatran [Pradaxa] 150 mg PO BID 10/09/19 Ibuprofen [Motrin] 600 mg PO TID PRN 10/09/19 PARoxetine [Paxil] 10 mg PO DAILY 10/09/19 Temazepam [Restoril] 15 mg PO HS PRN 10/09/19 amLODIPine [Norvasc] 5 mg PO DAILY 10/09/19 traMADol HCL 50 mg PO BID 10/09/19
[2019-10-11 05:57] VITALS: BP 132/80; PULSE 71; TEMP 97.9
[2019-10-11] MEDS ORDERED: PANTOPRAZOLE 40 MG TABLET PO SCH (07:30)
[2019-10-11 07:36] LABS: African American GFR (CKD) >90 (>60 ml/min/1.73 sqM); Anion Gap 6 mmol/L; Blood Urea Nitrogen 14 mg/dL (7-17); Calcium 8.5 mg/dL (8.4-10.2); Carbon Dioxide 24 mmol/L (22-30); Chloride 95 mmol/L (98-107); Glucose 134 mg/dL (74-99); Non-African American GFR(CKD) >90 (>60 ml/min/1.73 sqM); Potassium 4.1 mmol/L (3.5-5.1); Sodium 125 mmol/L (137-145)
[2019-10-11] MEDS: DABIGATRAN 150 MG CAP PO SCH (08:57)
[2019-10-11] MEDS: dexAMETHasone 4 MG TAB PO SCH (08:57)
[2019-10-11] MEDS: atenoloL 25 MG TAB PO SCH (08:57)
[2019-10-11] MEDS: PARoxetine 10 MG TAB PO SCH (08:57)
[2019-10-11] MEDS ORDERED: amLODIPine 10 MG TAB PO SCH (09:00)
--- NOTE | 2019-10-11 09:52 | P.DS ---
Providers Date of admission: 10/10/19 15:11 Attending physician: Ric Bailey Consults: 10/10/19 08:01 Consult Physician Routine Consulting Provider: Jose Alfredo Ferguson Consult Reason/Comments: lumbar pain, injection Do you want consulting provider notified?: Yes Primary care physician: Ric Bailey [facility] Course: This is a 79-year-old female patient of Dr. Bailey with past medical history of paroxysmal atrial fibrillation on Pradaxa, hypertension. Patient has been recently seen in the office secondary to lumbar back pain and started on steroids which patient states she completed as well as baclofen and tramadol. Patient states tramadol did not help her pain at all. She was also started on Restoril for sleep. She presented to [facility] emergency center due to altered mental status. She [place] [facility] [place] independent [place] and cares for her with dementia but he is in assisted care. Patient did not show up for her 's doctor's appointment which was very unusual for her. Her daughter checked on her and she was found sitting in a chair that she normally sleeps in. She had some urinary incontinence and there was a towel in her underwear. She was able to get up and ambulate to the stretcher for EMS. Patient was brought into [facility] emergency center for evaluation. Her initial blood pressure was 170/116, heart rate 96, pulse ox 95% on room air and afebrile. Patient was straight cathed with removal of 1000 ML's. Blood work revealed urine drug screen positive for benzodiazepines. Negative for salicylates, acetaminophen and alcohol level. Urine did not show any sign of UTI. CAT scan of the brain revealed no acute intracranial hemorrhage or midline shift. Mild to moderate diffuse cerebral atrophy with mild chronic ischemic changes. Chest x-ray showed mild cardiomegaly with without acute pulmonary process. Lumbar sacral CAT scan revealed multilevel degenerative changes. WBC 3.4, hemoglobin 13.2. Sodium 133, potassium 4.1, chloride 100, CO2 27, BUN 11 creatinine 0.44. Blood sugar 113. EKG was a sinus rhythm with no acute ST changes. Patient continued to be quite sedated while in the emergency center and was decided she would be placed on the MedSur floor for further evaluation. At the time of our evaluation, patient complains of lumbar pain and buttocks pain 10 out of 10 on the left side. She does not recall anything from yesterday. She does know that she was confused. 10/11/2019: Patient is sitting up in bed in no acute distress. Patient states that her pain has been under control. She was seen by anesthesia for pain management however she was not given any injections yesterday. Patient will be set up to be seen in the office for possible injection and referral to pain management as needed. Patient is anxious to go home. Patient was seen by PT yesterday and was able to follow commands and perform exercises as prescribed. Patient will be given analgesics for home upon discharge. Discharge diagnosis 1. Uncontrolled lumbar pain secondary to multilevel degenerative disc disease. 2. Acute toxic metabolic encephalopathy secondary to medications: 3. Paroxysmal atrial fibrillation. 4. Uncontrolled hypertension. 5. Urinary retention status post straight cath for urinalysis with 1000 mL return. 6. COVID-19 infection not present. Discharge disposition: home with self-care Impression and plan of care have been directed as dictated by the signing physician. Antoinette Almazan nurse practitioner acting as scribe for signing physician. Patient Condition at Discharge: Stable Plan - Discharge Summary Discharge Rx Participant: No New Discharge Prescriptions: New Baclofen [Lioresal] 5 mg PO BID PRN #60 tab PRN Reason: Muscle Spasm HYDROcodone/APAP 5-325MG [Deepwater 5-325] 1 each PO Q4HR PRN #0 tab PRN Reason: Pain Continue Atenolol 25 mg PO DAILY Temazepam [Restoril] 15 mg PO HS PRN PRN Reason: Insomnia PARoxetine [Paxil] 10 mg PO DAILY Ibuprofen [Motrin] 600 mg PO TID PRN PRN Reason: Pain Dabigatran [Pradaxa] 150 mg PO BID Baclofen [Lioresal] 10 mg PO BID amLODIPine [Norvasc] 5 mg PO DAILY traMADol HCL 50 mg PO BID Discharge Medication List Atenolol 25 mg PO DAILY 01/05/16 [History] Baclofen [Lioresal] 10 mg PO BID 10/09/19 [History] Dabigatran [Pradaxa] 150 mg PO BID 10/09/19 [History] Ibuprofen [Motrin] 600 mg PO TID PRN 10/09/19 [History] PARoxetine [Paxil] 10 mg PO DAILY 10/09/19 [History] Temazepam [Restoril] 15 mg PO HS PRN 10/09/19 [History] amLODIPine [Norvasc] 5 mg PO DAILY 10/09/19 [History] traMADol HCL 50 mg PO BID 10/09/19 [History] Baclofen [Lioresal] 5 mg PO BID PRN #60 tab 10/11/19 [Rx] HYDROcodone/APAP 5-325MG [Deepwater 5-325] 1 each PO Q4HR PRN #0 tab 10/11/19 [Rx] Follow up Appointment(s)/Referral(s): Ric Bailey MD [Primary Care Provider] - 1-2 days (Please call and schedule a follow up appointment.) [facility], [NON-STAFF] - 1 Week Patient Instructions/Handouts: Baclofen (By mouth), Baclofen (By injection), Hyponatremia (DC) Activity/Diet/Wound Care/Special Instructions: DIET TOLERATED ACTIVITY LIMITED UNTIL SEEN BY
== END 2019-10-11 11:17 | disposition home health service (06) | DRG 93 ==
LOC: EC 15:36 → 5NMEDONC 17:49 → OBSVTOIN 10-10 15:11
PROVIDERS: ADMIT Internal Medicine Geriatric Medicine; ATTEND Internal Medicine Geriatric Medicine
DX: G92 Toxic encephalopathy (principal); I10 Essential (primary) hypertension; I48.0 Paroxysmal atrial fibrillation; K21.9 Gastro-esophageal reflux disease without esophagitis; L40.9 Psoriasis, unspecified; M51.36 Other intervertebral disc degeneration, lumbar region; T50.905A Adverse effect of unspecified drugs, medicaments and biological substances, initial encounter; R33.9 Retention of urine, unspecified; Z11.59 Encounter for screening for other viral diseases; Z79.01 Long term (current) use of anticoagulants; Z79.899 Other long term (current) drug therapy; Z90.49 Acquired absence of other specified parts of digestive tract; Z98.890 Other specified postprocedural states; Z90.710 Acquired absence of both cervix and uterus; Z87.891 Personal history of nicotine dependence; Z98.42 Cataract extraction status, left eye; Z98.41 Cataract extraction status, right eye; Z82.49 Family history of ischemic heart disease and other diseases of the circulatory system; Z82.5 Family history of asthma and other chronic lower respiratory diseases
CPT/HCPCS: 36415; 51701; 70450; 71046; 72131; 80048; 80053; 80306; 80320; 80329; 81003; 82140; 82550; 83520; 83605; 84484; 85025; 85610; 85730; 93005; 96360; 99285

== ENCOUNTER → 2019-10-21 | Outpatient (CLI) | payer MEDICARE ==
[2019-10-21 12:38] VITALS: BP 165/79; PULSE 70; RESP 18
--- NOTE | 2019-10-21 13:07 | P.PAINPG ---
Subjective Progress Note Date: 10/21/19 this is a 79-year-old female who presents to the pain clinic, referred to the pain clinic by Dr. Bailey, following recent hospital admission for altered mental status and low back pain. She was evaluated by Dr. Concepcion on 10/10/2019 while inpatient. He felt that her pain was primarily due to ischial bursitis, and recommended heat to the area as well as NSAIDs. Her chief complaint is pain is located in the left buttock, without radiation. She denies numbness, weakness and tingling. Pain began in July with no inciting event. Prior to July, she was active, even doing gardening. Since the pain began, she has been using a walker/wheelchair. Pain is rated as 8-10/10. Pain is worse with walking, putting pressure on the area and better with sitting. Her current medications include baclofen 10 mg every 12 hours and [place] every 6 hours with modest relief. She denies side effects from the medications. She did undergo to cortisone injections in the office with Dr. Bailey with no significant benefit. Review of systems is negative for chest pain, shortness of breath, new onset weakness, numbness/tingling, abdominal pain, malaise, fever, night sweats, chills, homicidal or suicidal ideation, or bowel or bladder incontinence. Physical exam: Vitals: Reviewed in EMR GENERAL: Well appearing, in no acute distress, obese, seated in a wheelchair PSYCH: Mood and affect is appropriate. Awake, alert, and oriented SKIN: Skin color, texture, turgor normal, no rashes or lesions HEENT: Normocephalic, atraumatic. EOM intact CV: 1+ pedal edema RESP: Respirations are unlabored, no audible wheezing GI: Abdomen non-distended MUSCULOSKELETAL: Bilateral lower extremity strength is 4+ throughout bilate rally. No atrophy or tone abnormalities are noted. Lumbar spine: Straight leg raising in the sitting position is negative for radicular pain. No pain to palpation over the lumbar spine and paraspinous muscles. Negative for pain with facet loading and back extension/rotation. Normal range of motion without pain reproduction Buttocks: No pain to palpation over the PSIS, sacroiliac joint maneuvers are negative for pain. Significant tenderness noted over the left ischial bursa Extremities: Peripheral joint ROM is full and pain free without obvious instability or laxity in all four extremities. [place] discolorations noted. NEUR: Bilateral lower extremity coordination and muscle stretch reflexes are physiologic and symmetric. Negative clonus bilaterally. No loss of sensation is noted. Imaging: CT lumbar spine reviewed, which reveals multilevel degenerative disc disease, multilevel lumbar facet arthropathy, mild to moderate bilateral neuroforaminal narrowing at L3-4 and L4-5. Assessment: Ischial bursitis Lumbar degenerative disc disease Lumbar spondylosis Plan: Procedures: We will schedule left ischial bursa injection with steroid Medications: Managed by Dr. Bailey referrals: In the future, we will send her to physical therapy Follow-up: For above-mentioned procedure at her earliest available PQRS Measure Charge Sheet Measure #130: Documentation of Current Meds in Medical Chart: Patient's medications documented in chart Measure #226: Tobacco Use: Screen & Cessation Intervention: Pt not a tobacco user Measure #111: Pneumonia Vaccination: Pneumococcal vaccine administered or previously received Measure #47: Advance Care Plan: Advance care planning discussed & documented, pt chose/unable to give Measure #412: Opioid Treatment Agreement: No documentation of signed opioid treatment agreement Measure #408: Opioid Therapy Follow-up Evaluation: Patient had NO f/u eval minimum every 3 months during opioid therapy Measure #317: Preventitive Care & Scrn High Bld Press & F/U: Pre-hypertensive or hypertensive BP documented, pt will f/u with PCP Measure #128: Body Mass Index (BMI) Screening & Follow-up: BMI documented ABOVE normal parameters - f/u documented Measure #131: Pain Assessment & Follow-up: Pain positive & plan documented, Follow-up scheduled Measure #431: Unhealthy Alcohol Use Preventative Care & Scrn: Patient not identified as an unhealthy alcohol user PQRS Narrative: Smoking Status Former smoker Pain Intensity [Back] 7 Scale Used Numeric (1 - 10) Hx Alcohol Use (MH) No Home Medications: Ambulatory Orders Atenolol 25 mg PO HS 01/05/16 Dabigatran [Pradaxa] 150 mg PO BID 10/09/19 PARoxetine [Paxil] 10 mg PO DAILY 10/09/19 Temazepam [Restoril] 15 mg PO HS PRN 10/09/19 amLODIPine [Norvasc] 5 mg PO DAILY 10/09/19 HYDROcodone/APAP 5-325MG [[place] 5-325] 1 each PO Q4HR PRN #0 tab 10/11/19 Baclofen [Lioresal] 10 mg PO BID PRN 10/16/19 Calcium Carbonate [Calcium] 600 mg PO DAILY 10/16/19 Cholecalciferol [Vitamin D3 (25 Mcg = 1000 Iu)] 2,000 unit PO DAILY 10/16/19 Echinacea 500 mg PO DAILY 10/16/19 Glucos Sul 2Kcl/MSM/Chond/C/Mn [Glucosamine Chondroitin Cap] 1 each PO DAILY 10/16/19 Multivitamins, Thera [Multivitamin (formulary)] 1 tab PO DAILY 10/16/19 Controlled Substance Measures - Controlled Substance Measures Is patient prescribed a controlled substance at discharge?: No
== END | disposition home or self-care (01) ==
LOC: PNWHC3 11:47
PROVIDERS: ATTEND Anesthesiology
DX: M51.36 Other intervertebral disc degeneration, lumbar region (principal); M70.70 Other bursitis of hip, unspecified hip; M47.816 Spondylosis without myelopathy or radiculopathy, lumbar region; Z87.891 Personal history of nicotine dependence; Z79.891 Long term (current) use of opiate analgesic; Z79.899 Other long term (current) drug therapy
CPT/HCPCS: 99211

== ENCOUNTER 2019-10-30 07:33 | Day surgery (SDC) | payer MEDICARE ==
[2019-10-27 16:14] VITALS: BMI 36.6
[~2019-10-30 07:33] MED LIST changes: -LIDOCAINE 1% 20 ML VIAL (10MG/ML) FOR IV START INTRADERMA PRN
[2019-10-30 08:01] VITALS: TEMP 98.1
[2019-10-30] MEDS ORDERED: ROPIVACAINE 5MG/ML 20ML VIAL ONE (08:21)
[2019-10-30] MEDS ORDERED: TRIAMCINOLONE ACETONIDE 40 MG/ML 1 ML VIAL ONE (08:21)
[2019-10-30] MEDS ORDERED: IOPAMIDOL M200 10 ML VIAL ONE (08:21)
[2019-10-30] MEDS ORDERED: MIDAZOLAM 2 MG/2 ML VIAL ONE (08:21)
--- NOTE | 2019-10-30 08:32 | P.PCN ---
Date of Procedure: 10/30/19 Procedure(s) Performed: Pre OP diagnoses= left ischial bursitis . Postoperative diagnosis= left ischial bursitis. Operation= left ischial bursa steroid injection under fluoroscopy guidance. Anesthesia= lidocaine 1% 5 mL . Moderate sedation with Versed 1 mg, sedation time 4 minutes Complications= none . Description of the procedure= patient had history of left buttock pain secondary to ischial bursitis for this reason patient was a good candidate to have left ischial bursa steroid injection. Risks and benefits of the procedure including but not limited to risk of infection and bleeding and incomplete pain relief and ALLERGIC reaction to medication discussed with the patient and the alternative also discussed with the patient and he agreed with the preceding. Patient was taken to the operating room placed in prone position or standard monitors applied patient. the left buttock area was prepped with chlorhexidine 2 times, and under sterile technique using 25-gauge needle for skin and subcutaneous tissue infiltration was first administered. Then, a 22-gauge 3.5 inch Quincke- type spinal needle advanced slowly under fluoroscopy and placed in the area of the left ischial bursa. Needle placement confirmed with AP view under fluoroscopy. Then 1 mL of Isovue 200 was injected, confirming no vascular uptake. Then a total of 4 ML of Marcaine 0.5% mixed with 40 mg of Kenalog injected after negative aspiration for heme. No paresthesias noted during the injection and needle was removed and a dressing applied. Patient tolerated the procedure well without any complication and she will follow up with the pain clinic in a few weeks. Patient discharged home in stable condition
[2019-10-30] MEDS ORDERED: IV FLUID CONTINUATION 1,000 ML IV ONE (08:36)
[2019-10-30 08:40] VITALS: RESP 16
[2019-10-30 09:05] VITALS: BP 155/86; PULSE 90
--- NOTE | 2019-10-30 15:01 | FL ---
EXAMINATION TYPE: FL guided pain mgmt statistic DATE OF EXAM: 10/30/2019 COMPARISON: NONE HISTORY: Left fascial bursa injection TECHNIQUE: Fluoroscopy. FINDINGS: Fluoroscopic guidance was provided during procedure performed by Dr. Tom. A total of 1 se conds of fluoroscopic time was utilized during the procedure and 1 spot images was acquired. Please s ee operative note for additional details IMPRESSION: As Above.
== END 2019-10-30 09:18 | disposition home or self-care (01) ==
LOC: ORPAIN 07:33
PROVIDERS: ATTEND Anesthesiology
DX: M70.72 Other bursitis of hip, left hip (principal); M47.816 Spondylosis without myelopathy or radiculopathy, lumbar region; M51.36 Other intervertebral disc degeneration, lumbar region; Z88.6 Allergy status to analgesic agent; Z79.02 Long term (current) use of antithrombotics/antiplatelets; Z79.899 Other long term (current) drug therapy; Z87.891 Personal history of nicotine dependence
CPT/HCPCS: 20610; J2250; J3301; Q9966; J2795

== ENCOUNTER → 2019-12-01 | Outpatient (CLI) | payer MEDICARE ==
[2019-12-01 12:19] VITALS: BP 125/77; PULSE 81; RESP 16; TEMP 98
--- NOTE | 2019-12-01 12:43 | P.PAINPG ---
Subjective Progress Note Date: 12/01/19 this is a 79-year-old female who presents to the pain clinic, with chronic history of severe low back pain she is diagnosed with lumbar spondylosis, and left ischial bursitis, status post left ischial bursa steroid injection, she reports her low back pain improves completely and currently she is complaining of severe mid back pain, is not radiated to the front is not radiated to the lower extremity, she denies any motor or sensory deficit she denies any numbness or tingling sensation, the pain is continuous and increases with any activity, Her current medications include baclofen 10 mg every 12 hours and [place] every 6 hours with modest relief. She denies side effects from the medications. Review of systems is negative for chest pain, shortness of breath, new onset weakness, numbness/tingling, abdominal pain, malaise, fever, night sweats, chills, homicidal or suicidal ideation, or bowel or bladder incontinence. Objective - Vital Signs Vital signs: Vital Signs Temp 98 F 12/01/19 12:08 Pulse 81 12/01/19 12:08 Resp 16 12/01/19 12:08 BP 125/77 12/01/19 12:08 Pulse Ox 96 12/01/19 12:08 - Exam Physical Examinations : -Constitutiona : Cooperative , not in acute distress . -HEENT : nech : supple , no Lymphadenopathy , normal thyroid size . : eyes : no ptosis , no icterus, no photophobia . - neurologic : Cranial nerve II to XII intact , no focal neurological deffecit . -psychatric : alert , oriented X 3 , appropriate affect , intact judgment and insight . -Lymphatic : no Lymphadenopathy . - musculoskeltal : thoracic Spine . Positive facet loading test thoracic area Flexion extension and rotation of the thoracic spine associated with pain Lumber spine moter stegnth lower extremities ,thigh and legs 5/5 Right side , 5/5 Left side Imaging: CT lumbar spine reviewed, which reveals multilevel degenerative disc disease, multilevel lumbar facet arthropathy, mild to moderate bilateral neuroforaminal narrowing at L3-4 and L4-5. Assessment and Plan Plan: Assessment and plan= Left ischial bursitis, pain improved after left ischial bursa steroid injection Lumbar spondylosis with lumbar facet arthropathy without myelopathy Lumbar degenerative disc disease. Mid back pain mostly secondary to thoracic spondylosis,will order MRI of the thoracic spine to evaluate the etiology. Patient will follow up in the pain clinic in 2 weeks Time with Patient: Less than 30 PQRS Measure Charge Sheet Measure #130: Documentation of Current Meds in Medical Chart: Patient's medications documented in chart Measure #226: Tobacco Use: Screen & Cessation Intervention: Pt not a tobacco user Measure #111: Pneumonia Vaccination: Pneumococcal vaccine administered or previously received Measure #47: Advance Care Plan: Advance care planning discussed & documented, pt chose/unable to give Measure #412: Opioid Treatment Agreement: No documentation of signed opioid treatment agreement Measure #408: Opioid Therapy Follow-up Evaluation: Patient had NO f/u eval minimum every 3 months during opioid therapy Measure #317: Preventitive Care & Scrn High Bld Press & F/U: Normal blood pressure, f/u not required Measure #128: Body Mass Index (BMI) Screening & Follow-up: BMI documented ABOVE normal parameters - f/u documented Measure #131: Pain Assessment & Follow-up: Pain positive & plan documented, Follow-up scheduled Measure #431: Unhealthy Alcohol Use Preventative Care & Scrn: Patient not identified as an unhealthy alcohol user PQRS Narrative: Smoking Status Former smoker Blood Pressure 125/77 Pain Intensity [Bilateral 4 Posterior Medial Back] Pain Intensity [None] 0 Scale Used Numeric (1 - 10) Hx Alcohol Use (MH) No Home Medications: Ambulatory Orders Dabigatran [Pradaxa] 150 mg PO BID 10/09/19 PARoxetine [Paxil] 10 mg PO DAILY 10/09/19 Temazepam [Restoril] 15 mg PO HS PRN 10/09/19 amLODIPine [Norvasc] 5 mg PO DAILY 10/09/19 Calcium Carbonate [Calcium] 600 mg PO DAILY 10/16/19 Cholecalciferol [Vitamin D3 (25 Mcg = 1000 Iu)] 2,000 unit PO DAILY 10/16/19 Echinacea 500 mg PO DAILY 10/16/19 Glucos Sul 2Kcl/MSM/Chond/C/Mn [Glucosamine Chondroitin Cap] 1 each PO DAILY 10/16/19 Multivitamins, Thera [Multivitamin (formulary)] 1 tab PO DAILY 10/16/19 Cannabidiol (Cbd) [Epidiolex] 1 drop PO DAILY PRN 10/27/19 Controlled Substance Measures - Controlled Substance Measures Is patient prescribed a controlled substance at discharge?: No
== END | disposition home or self-care (01) ==
LOC: PNWHC3 11:56
PROVIDERS: ATTEND Specialist
DX: M47.816 Spondylosis without myelopathy or radiculopathy, lumbar region (principal); M46.96 Unspecified inflammatory spondylopathy, lumbar region; M51.36 Other intervertebral disc degeneration, lumbar region; M47.814 Spondylosis without myelopathy or radiculopathy, thoracic region; M70.72 Other bursitis of hip, left hip; Z87.891 Personal history of nicotine dependence; Z79.899 Other long term (current) drug therapy; Z79.891 Long term (current) use of opiate analgesic
CPT/HCPCS: 99211

== ENCOUNTER → 2019-12-29 | Outpatient (CLI) | payer MEDICARE ==
--- NOTE | 2019-12-29 11:50 | MR ---
EXAMINATION TYPE: MR thoracic spine wo con DATE OF EXAM: 12/29/2019 COMPARISON: None HISTORY: Mid back pain, Thoracic spondylosis Standard multiplanar, multisequence MRI departmental protocol Multiplanar, multisequence images of the thoracic spine were acquired. FINDINGS: There is multilevel degenerative disc disease. No compression deformities. Incidental note is made of severe degenerative disc disease C6-C7. At T3-T4 there is central disc bulging. Minimal effacement of thecal sac. No spinal cord contact or f oraminal encroachment At T6-T7 there is posterior spurring but no disc herniation or canal stenosis or neural foramina mack nt. At T10-T11 there is facet arthropathy greater on the right with posterior impression upon the thecal sac paracentrally to the right. This does result in mild right-sided foraminal encroachment At T12-L1 there is facet arthropathy bilaterally. No disc herniation or canal stenosis. Remaining levels demonstrate no evidence of disc herniation or canal stenosis. No foraminal encroachm ent. Nonspecific thickening of the left adrenal gland. IMPRESSION: 1. Multilevel mild to moderate degenerative disc disease. 2. Central disc bulging T3-T4 but no discrete herniation, canal stenosis or foraminal encroachment. 3. Multilevel facet arthropathy involving the thoracolumbar junction with ligamentum flavum hypertrop hy most noted at T10-T11 on the right resulting in mild posterior compression of thecal sac and mild right-sided foraminal encroachment. 4. Severe degenerative disc disease C6-C7.
== END | disposition home or self-care (01) ==
LOC: RADMRIMAIN 09:48
PROVIDERS: ATTEND Specialist
DX: M51.24 Other intervertebral disc displacement, thoracic region (principal); M51.34 Other intervertebral disc degeneration, thoracic region; M47.815 Spondylosis without myelopathy or radiculopathy, thoracolumbar region; G95.29 Other cord compression
CPT/HCPCS: 72146

== ENCOUNTER → 2020-01-07 | Outpatient (CLI) | payer MEDICARE ==
[2020-01-07 13:22] VITALS: BP 163/84; PULSE 70; RESP 18; TEMP 97.7
--- NOTE | 2020-01-07 13:58 | P.PN ---
Subjective Progress Note Date: 01/07/20 This is a follow-up visit for this patient with a history of severe mid back pain , and she is here today for follow-up visit after she had MRI of the thoracic spine, and MRI showing that patient had multilevel thoracic degenerative disc disease and also she had thoracic facet arthropathy, the pain is constant increased with any activity, she denies any motor or sensory deficit she denies any fever or night sweats with tenderness no change in bowel movement or urination Objective - Vital Signs Vital signs: Vital Signs Temp 97.7 F 01/07/20 13:18 Pulse 70 01/07/20 13:18 Resp 18 01/07/20 13:18 BP 163/84 01/07/20 13:18 Pulse Ox 97 01/07/20 13:18 - Exam -Constitutiona : Cooperative , not in acute distress . -HEENT : nech : supple , no Lymphadenopathy , normal thyroid size . : eyes : no ptosis , no icterus, no photophobia . - neurologic : Cranial nerve II to XII intact , no focal neurological deffecit . -psychatric : alert , oriented X 3 , appropriate affect , intact judgment and insight . -Lymphatic : no Lymphadenopathy . - musculoskeltal : thoracic Spine . Positive facet loading test thoracic area Flexion extension and rotation of the thoracic spine associated with pain Lumber spine moter stegnth lower extremities ,thigh and legs 5/5 Right side , 5/5 Left side MRI of the thoracic spine= multilevel degenerative disc disease and thoracic facet arthropathy Imaging: CT lumbar spine reviewed, which reveals multilevel degenerative disc disease, multilevel lumbar facet arthropathy, mild to moderate bilateral neuroforaminal narrowing at L3-4 and L4-5. Assessment and Plan Plan: Thoracic spondylosis with thoracic facet arthropathy without myelopathy. Thoracic degenerative disc disease Patient will be good candidate to have diagnostic medial branch blocks thoracic area bilaterally at T9, T10, T11 x2 and benefits positive we'll proceed with RFA Time with Patient: Less than 30
== END | disposition home or self-care (01) ==
LOC: PNWHC3 13:08
PROVIDERS: ATTEND Specialist
DX: M51.34 Other intervertebral disc degeneration, thoracic region (principal); M47.814 Spondylosis without myelopathy or radiculopathy, thoracic region; M46.96 Unspecified inflammatory spondylopathy, lumbar region
CPT/HCPCS: 99211

== ENCOUNTER → 2020-01-23 | Outpatient (CLI) | payer MEDICARE ==
[2020-01-24 01:36] LABS: African American GFR (CKD) 62.1 (60.0-200.0); Anion Gap 9.6 mmol/L (4.00-12.00); Carbon Dioxide 26.4 mmol/L (21.6-31.8); Magnesium 1.8 mg/dL (1.5-2.4); Non-African American GFR(CKD) 53.5 (60.0-200.0); Potassium 4.6 mmol/L (3.5-5.5)
== END | disposition home or self-care (01) ==
LOC: LABWHC1 13:41
PROVIDERS: ATTEND Nurse Practitioner
DX: I10 Essential (primary) hypertension (principal); R60.0 Localized edema
CPT/HCPCS: 36415; 80048; 83735

== ENCOUNTER → 2020-01-29 | Day surgery (SDC) | payer MEDICARE ==
[~2020-01-29] MED LIST changes: +ROPIVACAINE 5MG/ML 20ML VIAL ONE; +methylPREDNISolone ACETATE 40 MG/ML 1 ML VIAL ONE
[2020-01-29 08:29] LABS: Glucose,Whole Blood 127 mg/dL (75-99)
--- NOTE | 2020-01-29 08:50 | P.PCN ---
Date of Procedure: 01/29/20 Description of Procedure: Procedure: Thoracic Medial Branch Block at right T9-T10, T10-T11 #1 (patient reports she does not have pain on the left) Diagnosis: Thoracic spondylosis Anesthesia: Local Imaging: Fluoroscopy was used, images where saved to the medical record Procedure description: The patient was seen and examined in the [facility]. Procedure risks and benefits were fully reviewed with the patient. The patient understands this is a diagnostic if local only is used, as will be the case today. The goal of the procedure is to inject medication onto the medial branch or small nerves that innervate the facet joints. In this way, we can hopefully identify which of these joints, if any, may be contributing to their pain. Informed consent for procedure was obtained. The patient was taken into the office fluoroscopy procedure room and placed prone on the table. A pillow was placed under the abdomen to reduce lumbar lordosis. Vital signs were closely monitored during the procedure. The skin over the area was prepped with Betadine X 3 and draped in usual sterile manner. Sterile technique was observed throughout procedure. Under biplanar fluoroscopic guidance, the target injection area of the T9-T10, T10-T11 where targeted. A 25 gauge 3 1/2 inch spinal needle was then placed at the medial and superior aspect of the pedicle of the targeted level. Aspiration for blood and CSF was negative. 0.5 cc of 0.5% marcaine with a total of 40 mg of Depo-Medrol was injected into the targeted areas separately. [place] were withdrawn intact. No complications were noted during the procedure. Disposition: The patient tolerated the procedure well. The patient was placed in supine position and transferred to the recovery area for observation and remained stable until discharged home. Home discharge instructions were given to the patient by the staff. The patient will schedule a follow up as directed.
[2020-01-29 09:18] VITALS: BP 180/72; PULSE 82; RESP 17
--- NOTE | 2020-01-29 10:52 | FL ---
Fluoroscopy HISTORY: Pain 4 seconds fluoroscopy time supplied to the referring clinician. 3 intraoperative C-arm images docume nt the procedure. See dictated report from anesthesia.
== END ==
LOC: ORPAIN 07:33
PROVIDERS: ATTEND Hospitalist
DX: M47.894 Other spondylosis, thoracic region (principal); Z88.5 Allergy status to narcotic agent; Z90.710 Acquired absence of both cervix and uterus; Z79.01 Long term (current) use of anticoagulants
CPT/HCPCS: 64490; 64491; J1030; J2795

== ENCOUNTER 2020-02-20 06:03 | Day surgery (SDC) | payer MEDICARE ==
[2020-02-18 13:23] VITALS: BMI 35.4
[2020-02-20 06:34] VITALS: RESP 16; TEMP 97.4
[2020-02-20] MEDS ORDERED: ROPIVACAINE 5MG/ML 20ML VIAL ONE (07:11)
[2020-02-20] MEDS ORDERED: IOPAMIDOL M200 10 ML VIAL ONE (07:11)
--- NOTE | 2020-02-20 07:28 | P.PCN ---
Date of Procedure: 02/20/20 Description of Procedure: Procedure: Thoracic Medial Branch Block at right T9-T10, T10-T11 #2 (patient reports she does not have pain on the left) Diagnosis: Thoracic spondylosis Anesthesia: Local Imaging: Fluoroscopy was used, images where saved to the medical record Procedure description: The patient was seen and examined in the [facility]. Procedure risks and benefits were fully reviewed with the patient. The patient understands this is a diagnostic if local only is used, as will be the case today. The goal of the procedure is to inject medication onto the medial branch or small nerves that innervate the facet joints. In this way, we can hopefully identify which of these joints, if any, may be contributing to their pain. Informed consent for procedure was obtained. The patient was taken into the office fluoroscopy procedure room and placed prone on the table. A pillow was placed under the abdomen to reduce lumbar lordosis. Vital signs were closely monitored during the procedure. The skin over the area was prepped with Betadine X 3 and draped in usual sterile manner. Sterile technique was observed throughout procedure. Under biplanar fluoroscopic guidance, the target injection area of the T9-T10, T10-T11 where targeted. A 25 gauge 3 1/2 inch spinal needle was then placed at the medial and superior aspect of the pedicle of the targeted level. Aspiration for blood and CSF was negative. 1 cc of 0.5% marcaine was injected into the targeted areas separately. [place] were withdrawn intact. No complications were noted during the procedure. Disposition: The patient tolerated the procedure well. The patient was placed in supine position and transferred to the recovery area for observation and remained stable until discharged home. Home discharge instructions were given to the patient by the staff. The patient will schedule a follow up as directed.
[2020-02-20 07:46] VITALS: BP 177/95; PULSE 66
--- NOTE | 2020-02-20 10:05 | FL ---
Fluoroscopy HISTORY: Pain 13 seconds fluoroscopy time supplied to the referring clinician. 1 intraoperative C-arm images docum ent the procedure. See dictated report from anesthesia.
== END 2020-02-20 08:01 | disposition home or self-care (01) ==
LOC: ORPAIN 06:03
PROVIDERS: ATTEND Anesthesiology
DX: M47.894 Other spondylosis, thoracic region (principal); Z88.5 Allergy status to narcotic agent; Z90.710 Acquired absence of both cervix and uterus; Z79.01 Long term (current) use of anticoagulants
CPT/HCPCS: 64490; 64491; Q9966; J2795

== ENCOUNTER → 2020-03-01 | Outpatient (CLI) | payer MEDICARE ==
--- NOTE | 2020-03-01 08:04 | P.PAINPG ---
Subjective Progress Note Date: 03/01/20 This is a follow-up visit for this patient with a history of severe mid back pain and left low buttock pain , and she is here today for follow-up visit after she had thoracic MBB on the spine at the right T9-T10 and T10-T11 level x2. In the past we have also done left ischial bursa injections for her as well. She reports that she is doing very well. She notes that the medial branch block procedure [place] pain down by 80%, and she notices that even now she is not having much pain at all. In general when she does have pain it is when she overdoes things in terms of physical activity and is located in her mid back on the right side. She also does note some knee pain bilaterally, mentions that s he had steroid injections in them in the past and like to have them look after her RFA procedure. Of note she is on PRADAXA for a history of atrial fibrillation. Review of systems is negative for chest pain, shortness of breath, new onset weakness, numbness/tingling, abdominal pain, malaise, fever, night sweats, chills, homicidal or suicidal ideation, or bowel or bladder incontinence. Objective - Exam -Constitutiona : Cooperative , not in acute distress . -HEENT : nech : supple , no Lymphadenopathy , normal thyroid size . : eyes : no ptosis , no icterus, no photophobia . - neurologic : Cranial nerve II to XII intact , no focal neurological deficit . -psychatric : alert , oriented X 3 , appropriate affect , intact judgment and insight . -Lymphatic : no Lymphadenopathy . - musculoskeltal : thoracic Spine . Positive facet loading test thoracic area Flexion extension and rotation of the thoracic spine associated with pain Lumber spine moter stegnth lower extremities ,thigh and legs 5/5 Right side , 5/5 Left side MRI of the thoracic spine= multilevel degenerative disc disease and thoracic facet arthropathy Imaging: CT lumbar spine reviewed, which reveals multilevel degenerative disc disease, multilevel lumbar facet arthropathy, mild to moderate bilateral neuroforaminal narrowing at L3-4 and L4-5. MRI of the thoracic spine, and MRI showing that patient had multilevel thoracic degenerative disc disease and also she had thoracic facet arthropathy, the pain is constant increased with any activity, she denies any motor or sensory deficit she denies any fever or night sweats with tenderness no change in bowel movement or urination Assessment and Plan Plan: Thoracic spondylosis with thoracic facet arthropathy without myelopathy. Thoracic degenerative disc disease L ischial bursitis - Patient will be good candidate to have RFA at the thoracic area right side at T9, T10, T11 as she has had > 80% pain relief with both recent thoracic MBBs, will coordinate with her primary care provider to make sure she can come off her Pradaxa for this procedure Consider bilateral knee x-rays in the future when seeing patient on followup visit if patient would still like to pursue knee pain workup. Time with Patient: Less than 30 PQRS Measure Charge Sheet PQRS Narrative: Smoking Status Former smoker Pain Intensity [None] 0 Scale Used Numeric (1 - 10) Hx Alcohol Use (MH) No Home Medications: Ambulatory Orders Dabigatran [Pradaxa] 150 mg PO BID 10/09/19 PARoxetine [Paxil] 10 mg PO QAM 10/09/19 Temazepam [Restoril] 15 mg PO HS PRN 10/09/19 amLODIPine [Norvasc] 5 mg PO QAM 10/09/19 Calcium Carbonate [Calcium] 600 mg PO DAILY 10/16/19 Cholecalciferol [Vitamin D3 (25 Mcg = 1000 Iu)] 2,000 unit PO DAILY 10/16/19 Echinacea 500 mg PO DAILY 10/16/19 Glucos Sul 2Kcl/MSM/Chond/C/Mn [Glucosamine Chondroitin Cap] 1 each PO DAILY 10/16/19 Multivitamins, Thera [Multivitamin (formulary)] 1 tab PO DAILY 10/16/19 Cannabidiol (Cbd) [Epidiolex] 1 drop PO DAILY PRN 10/27/19 Furosemide [Lasix] 20 mg PO QAM 02/18/20 atenoloL [Atenolol] 25 mg PO HS 02/18/20 hydrALAZINE HCL 25 mg PO QAM 02/18/20 Controlled Substance Measures - Controlled Substance Measures Is patient prescribed a controlled substance at discharge?: No
[2020-03-01 08:31] VITALS: BP 156/71; PULSE 76; RESP 16; TEMP 97.8
== END | disposition home or self-care (01) ==
LOC: PNWHC3 07:35
PROVIDERS: ATTEND Anesthesiology
DX: M51.34 Other intervertebral disc degeneration, thoracic region (principal); M47.814 Spondylosis without myelopathy or radiculopathy, thoracic region; M70.72 Other bursitis of hip, left hip; Z87.891 Personal history of nicotine dependence; Z79.899 Other long term (current) drug therapy; Z79.891 Long term (current) use of opiate analgesic
CPT/HCPCS: 99211

== ENCOUNTER 2020-03-19 12:13 | Day surgery (SDC) | payer MEDICARE ==
[2020-03-18 09:06] VITALS: BMI 35.4
[~2020-03-19 12:13] MED LIST changes: -ROPIVACAINE 5MG/ML 20ML VIAL ONE; -methylPREDNISolone ACETATE 40 MG/ML 1 ML VIAL ONE
[2020-03-19 12:49] VITALS: TEMP 98
[2020-03-19] MEDS ORDERED: TRIAMCINOLONE ACETONIDE 40 MG/ML 1 ML VIAL ONE (13:13)
[2020-03-19] MEDS ORDERED: ROPIVACAINE 5MG/ML 20ML VIAL ONE (13:13)
--- NOTE | 2020-03-19 13:52 | FL ---
EXAMINATION TYPE: FL guided pain mgmt statistic DATE OF EXAM: 03/19/2020 HISTORY: Fluoroscopy time 26 seconds of fluoroscopy provided. IMPRESSION: 1. Fluoroscopy time.
[2020-03-19 14:11] VITALS: BP 160/69; PULSE 78; RESP 20
--- NOTE | 2020-03-19 14:17 | P.PCN ---
Date of Procedure: 03/19/20 Preoperative Diagnosis: Thoracic spondylosis without myelopathy Postoperative Diagnosis: Same as above Procedure(s) Performed: Right thoracic medial branch RFA under fluoroscopic guidance for levels T8, T9, T10 and T11 Anesthesia: local Surgeon: Corrine Garcia Pathology: none sent Condition: stable Disposition: PACU Description of Procedure: The patient was brought into the procedure room and placed in prone position. Skin was prepped with ChloraPrep and draped in a sterile manner. Lidocaine 1% was used to numb the skin up at the target points that were chosen as follows: For the lower levels of the thoracic spine in the procedure was done in similar to the technique of the lumbar medial branch block by targeting the eye of the Stephen dog at T10, and T11 on the oblique view of fluoroscopy. For the T8, and T9 the target points were close to the superolateral corner of the transverse process of T8 and T9. Motor stimulation showed only local twitches of these needles with no radiation to the anterior chest area. I then injected lidocaine 1% 0.5 MLS in each needle before starting thermocoagulation at 80C for 90 seconds. I then injected 1 mL of a solution made up of 3 MLS ropivacaine 0.5% +40 mg of Kenalog and 1 mL of the solution was injected in each needle before taking the needles out. Patient tolerated procedure well. The patient will be seen in the clinic clinic in a few weeks.
== END 2020-03-19 14:12 | disposition home or self-care (01) ==
LOC: ORPAIN 12:13
PROVIDERS: ATTEND Anesthesiology
DX: M47.814 Spondylosis without myelopathy or radiculopathy, thoracic region (principal); I48.91 Unspecified atrial fibrillation; Z90.710 Acquired absence of both cervix and uterus; Z88.5 Allergy status to narcotic agent; Z79.02 Long term (current) use of antithrombotics/antiplatelets
CPT/HCPCS: 64633; 64634; J3301; J2795

== ENCOUNTER 2020-03-22 11:34 | Emergency (ER) | payer MEDICARE ==
[2020-03-22 11:48] VITALS: RESP 18
[2020-03-22 13:18] LABS: Basophils # (A) 0.1 k/uL (0-0.2); Basophils % (A) 1 %; Eosinophils # (A) 0.1 k/uL (0-0.7); Eosinophils % (A) 1 %; HCT 39.1 % (34.0-46.0); HGB 12.6 gm/dL (11.4-16.0); Lymphocytes # (A) 1.2 k/uL (1.0-4.8); Lymphocytes % (A) 14 %; MCH 29.4 pg (25.0-35.0); MCHC 32.3 g/dL (31.0-37.0); MCV 91.1 fL (80.0-100.0); Mean Platelet Volume 6.4; Monocytes # (A) 0.7 k/uL (0-1.0); Monocytes % (A) 8 %; Neutrophils # (A) 6.5 k/uL (1.3-7.7); Neutrophils % (A) 75 %; Platelet Count 349 k/uL (150-450); RBC 4.29 m/uL (3.80-5.40); RDW 13.5 % (11.5-15.5); WBC 8.6 k/uL (3.8-10.6)
[2020-03-22 13:29] LABS: African American GFR (CKD) >90 (>60 ml/min/1.73 sqM); Albumin 4.6 g/dL (3.5-5.0); Blood Urea Nitrogen 13 mg/dL (7-17); Carbon Dioxide 29 mmol/L (22-30); Chloride 95 mmol/L (98-107); Non-African American GFR(CKD) 85 (>60 ml/min/1.73 sqM); Total Protein 7.3 g/dL (6.3-8.2)
[2020-03-22 13:38] LABS: D-Dimer 0.23 mg/L FEU (<0.60); Partial Thromboplastin Time 23.8 sec (22.0-30.0); Prothrombin Time 10.6 sec (9.0-12.0)
--- NOTE | 2020-03-22 13:45 | XR ---
EXAMINATION TYPE: XR chest 2V DATE OF EXAM: 03/22/2020 COMPARISON: 10/09/19 HISTORY: Shortness of breath TECHNIQUE: Frontal and lateral views of the chest are obtained. FINDINGS: Scattered senescent parenchymal changes noted. Hyperinflation compatible with COPD. No evidence for infiltrate. No evidence for atelectasis. Heart size is stable. Mediastinal structures are stable and grossly unremarkable. No evidence for hilar prominence. Degenerative changes dorsal spine. IMPRESSION: 1. No evidence for acute pulmonary disease.
[2020-03-22 13:49] LABS: ALT 23 U/L (4-34); AST 29 U/L (14-36); Alkaline Phosphatase 69 U/L (38-126); Anion Gap 7 mmol/L; Calcium 9.8 mg/dL (8.4-10.2); Glucose 119 mg/dL (74-99); Potassium 4.4 mmol/L (3.5-5.1); Sodium 131 mmol/L (137-145)
[2020-03-22 13:57] LABS: Total Bilirubin 0.6 mg/dL (0.2-1.3)
[2020-03-22 13:59] LABS: Appearance,Urine Clear (Clear); Bilirubin,Urine Negative (Negative); Blood,Urine Negative (Negative); Color,Urine Light Yellow; Glucose,Urine (UA) Negative (Negative); Ketones,Urine Negative (Negative); Leukocyte Esterase,Urine Moderate (Negative); Nitrite,Urine Negative (Negative); PH, Urine 6.5 (5.0-8.0); Protein,Urine Negative (Negative); RBC,Urine 2 /hpf (0-5); Specific Gravity,Urine 1.007 (1.001-1.035); Squamous Epithelial Cell,Urine 1 /hpf (0-4); Urobilinogen,Urine <2.0 mg/dL (<2.0); WBC,Urine 2 /hpf (0-5)
--- NOTE | 2020-03-22 14:26 | ED ---
SOB HPI - General Chief Complaint: Shortness of Breath Stated Complaint: SOB Time Seen by Provider: 03/22/20 12:08 Source: patient Mode of arrival: ambulatory Limitations: no limitations - History of Present Illness Initial Comments: Patient is an 80-year-old female who presents to the emergency department with reported exertional shortness of breath. Patient has a history of lumbar disc disease. States that she had a rhizotomy by Dr. Pearce on 03/19. Procedure was performed at T8-T11. She reports that she didn't experience shortness of breath on the . It is worse with exertion. She denies any chest pain. No lower external swelling. No history of DVT or PE. Denies history of heart failure. No previous history of lung issues. Denies cough, fevers or chills. No hemoptysis. No previous history of cardiac disease. Denies nausea, vomiting. No abdominal pain. She did started on 2 new medications recently - hydralazine and lasix. Denies urticaria or oral swelling. She has been taking his medications for one month without symptoms. No other alleviating, precipitating or modifying factors - Related Data Home Medications Medication Instructions Recorded Confirmed Dabigatran [Pradaxa] 150 mg PO BID 10/09/19 03/18/20 PARoxetine [Paxil] 10 mg PO QAM 10/09/19 03/18/20 Temazepam [Restoril] 15 mg PO HS PRN 10/09/19 03/18/20 Calcium Carbonate [Calcium] 600 mg PO DAILY 10/16/19 03/18/20 Cholecalciferol [Vitamin D3 (25 2,000 unit PO DAILY 10/16/19 03/18/20 Mcg = 1000 Iu)] Echinacea 500 mg PO DAILY 10/16/19 03/18/20 Glucos Sul 2Kcl/MSM/Chond/C/Mn 1 each PO DAILY 10/16/19 03/18/20 [Glucosamine Chondroitin Cap] Multivitamins, Thera [Multivitamin 1 tab PO DAILY 10/16/19 03/18/20 (formulary)] Cannabidiol (Cbd) [Epidiolex] 1 drop PO DAILY PRN 10/27/19 03/18/20 Furosemide [Lasix] 20 mg PO QAM 02/18/20 03/18/20 atenoloL [Atenolol] 25 mg PO HS 02/18/20 03/18/20 hydrALAZINE HCL 25 mg PO QAM 02/18/20 03/18/20 Previous Rx's Medication Instructions Recorded Albuterol Inhaler [Ventolin Hfa 2 puff INHALATION RT-QID #1 puff 03/22/20 Inhaler] Allergies Allergy/AdvReac Type Severity Reaction Status Date / Time tramadol AdvReac Confusion Verified 03/22/20 11:44 Review of Systems ROS Statement: Those systems with pertinent positive or pertinent negative responses have been documented in the HPI. ROS Other: All systems not noted in ROS Statement are negative. Past Medical History Past Medical History: Atrial Fibrillation, GERD/Reflux, Hypertension, Skin Disorder Additional Past Medical History / Comment(s): HX OF PSORIASIS, DDD, sciatic nerve pain History of Any Multi-Drug Resistant Organisms: None Reported Past Surgical History: Cholecystectomy, Hernia Repair, Hysterectomy, Orthopedic Surgery Additional Past Surgical History / Comment(s): pain clinic procedure, LEFT FOOT ORIF, MAYA CATARACTS Past Anesthesia/Blood Transfusion Reactions: Postoperative Nausea & Vomiting (PONV) Past Psychological History: Anxiety Smoking Status: Former smoker Past Alcohol Use History: None Reported Past Drug Use History: None Reported - Past Family History Mother Family Medical History: No Reported History Additional Family Medical History / Comment(s): . Father Additional Family Medical History / Comment(s): Father at age 87 from COPD. Sister(s) Additional Family Medical History / Comment(s): Patient is a total of 4 sisters and one aside from COPD. Patient does not have any brothers. Patient has 4 d aughters and one has gallbladder disease and fibromyalgia. Other daughters with no major medical problems. Patient has one son with no major medical problems. General Exam Limitations: no limitations Course Vital Signs 03/22/20 03/22/20 11:44 14:47 Temperature 98.2 F 98.4 F Pulse Rate 72 78 Respiratory 18 18 Rate Blood Pressure 191/84 195/94 O2 Sat by Pulse 96 97 Oximetry Medical Decision Making - Medical Decision Making Upon arrival patient is placed into room 18. A thorough history and physical exam was performed. 12 Lead EKG was performed. Laboratory studies were conducted and patient went for chest x-ray. D-dimer is negative. Chest x-ray demonstrates no signs of pneumothorax, pleural fluid and ammonia. The results are discussed the patient. Did recommend admission for further cardiac workup however patient refused stating that she has an elderly at home who also recently had surgery. Patient is informed that she needs further workup to include stress testing, echo, pulmonary function testing and possible cardiac cath. Patient requested follow-up with her primary care doctor in order to have the studies obtained as she states she cannot remain hospitalized. Patient is made aware risks of leaving. I informed her that she needed to call her PCP today to make an appointment. I will provide her with an inhaler. She has any new or worsening symptoms or agrees to hospital admission she should return to the emergency room. Patient was in agreement with this and she is discharged in stable condition - Lab Data Result diagrams: 03/22/20 12:53 03/22/20 12:53 Lab Results 03/22/20 03/22/20 03/22/20 Range/Units 12:52 12:53 12:53 WBC 8.6 (3.8-10.6) k/uL RBC 4.29 (3.80-5.40) m/uL Hgb 12.6 (11.4-16.0) gm/dL Hct 39.1 (34.0-46.0) % MCV 91.1 (80.0-100.0) fL MCH 29.4 (25.0-35.0) pg MCHC 32.3 (31.0-37.0) g/dL RDW 13.5 (11.5-15.5) % Plt Count 349 (150-450) k/uL MPV 6.4 Neutrophils % 75 % Lymphocytes % 14 % Monocytes % 8 % Eosinophils % 1 % Basophils % 1 % Neutrophils # 6.5 (1.3-7.7) k/uL Lymphocytes # 1.2 (1.0-4.8) k/uL Monocytes # 0.7 (0-1.0) k/uL Eosinophils # 0.1 (0-0.7) k/uL Basophils # 0.1 (0-0.2) k/uL PT 10.6 (9.0-12.0) sec INR 1.0 (<1.2) APTT 23.8 (22.0-30.0) sec D-Dimer 0.23 (<0.60) mg/L FEU Sodium (137-145) mmol/L Potassium (3.5-5.1) mmol/L Chloride (98-107) mmol/L Carbon Dioxide (22-30) mmol/L Anion Gap mmol/L BUN (7-17) mg/dL Creatinine (0.52-1.04) mg/dL Est GFR (CKD-EPI)AfAm (>60 ml/min/1.73 sqM) Est GFR (CKD-EPI)NonAf (>60 ml/min/1.73 sqM) Glucose (74-99) mg/dL Calcium (8.4-10.2) mg/dL Total Bilirubin (0.2-1.3) mg/dL AST (14-36) U/L ALT (4-34) U/L Alkaline Phosphatase (38-126) U/L Troponin I (0.000-0.034) ng/mL NT-Pro-B Natriuret Pep pg/mL Total Protein (6.3-8.2) g/dL Albumin (3.5-5.0) g/dL Urine Color Light Yellow Urine Appearance Clear (Clear) Urine pH 6.5 (5.0-8.0) Ur Specific [place] 1.007 (1.001-1.035) Urine Protein Negative (Negative) Urine Glucose (UA) Negative (Negative) Urine Ketones Negative (Negative) Urine Blood Negative (Negative) Urine Nitrite Negative (Negative) Urine Bilirubin Negative (Negative) Urine Urobilinogen <2.0 (<2.0) mg/dL Ur Leukocyte Esterase Moderate H (Negative) Urine RBC 2 (0-5) /hpf Urine WBC 2 (0-5) /hpf Ur Squamous Epith Cells 1 (0-4) /hpf 03/22/20 03/22/20 03/22/20 Range/Units 12:53 12:53 12:53 WBC (3.8-10.6) k/uL RBC (3.80-5.40) m/uL Hgb (11.4-16.0) gm/dL Hct (34.0-46.0) % MCV (80.0-100.0) fL MCH (25.0-35.0) pg MCHC (31.0-37.0) g/dL RDW (11.5-15.5) % Plt Count (150-450) k/uL MPV Neutrophils % % Lymphocytes % % Monocytes % % Eosinophils % % Basophils % % Neutrophils # (1.3-7.7) k/uL Lymphocytes # (1.0-4.8) k/uL Monocytes # (0-1.0) k/uL Eosinophils # (0-0.7) k/uL Basophils # (0-0.2) k/uL PT (9.0-12.0) sec INR (<1.2) APTT (22.0-30.0) sec D-Dimer (<0.60) mg/L FEU Sodium 131 L (137-145) mmol/L Potassium 4.4 (3.5-5.1) mmol/L Chloride 95 L (98-107) mmol/L Carbon Dioxide 29 (22-30) mmol/L Anion Gap 7 mmol/L BUN 13 (7-17) mg/dL Creatinine 0.63 (0.52-1.04) mg/dL Est GFR (CKD-EPI)AfAm >90 (>60 ml/min/1.73 sqM) Est GFR (CKD-EPI)NonAf 85 (>60 ml/min/1.73 sqM) Glucose 119 H (74-99) mg/dL Calcium 9.8 (8.4-10.2) mg/dL Total Bilirubin 0.6 (0.2-1.3) mg/dL AST 29 (14-36) U/L ALT 23 (4-34) U/L Alkaline Phosphatase 69 (38-126) U/L Troponin I <0.012 (0.000-0.034) ng/mL NT-Pro-B Natriuret Pep 1070 pg/mL Total Protein 7.3 (6.3-8.2) g/dL Albumin 4.6 (3.5-5.0) g/dL Urine Color Urine Appearance (Clear) Urine pH (5.0-8.0) Ur Specific [place] (1.001-1.035) Urine Protein (Negative) Urine Glucose (UA) (Negative) Urine Ketones (Negative) Urine Blood (Negative) Urine Nitrite (Negative) Urine Bilirubin (Negative) Urine Urobilinogen (<2.0) mg/dL Ur Leukocyte Esterase (Negative) Urine RBC (0-5) /hpf Urine WBC (0-5) /hpf Ur Squamous Epith Cells (0-4) /hpf - EKG Data EKG Comments: EKG demonstrates sinus rhythm with a ventricular rate of 70. DE interval 106. QRS 112. QTC of 4.7. Baseline artifact in V4 through V6. No acute ST segment elevations Disposition Clinical Impression: Shortness of breath, Exertional dyspnea Disposition: HOME SELF-CARE Condition: Stable Instructions (If sedation given, give patient instructions): Dyspnea (ED) Additional Instructions: Please follow-up with your primary care doctor - I do recommend an Echo, stress test and pulmonary function testing if your symptoms continue. Return to the emergency department for any new or worsening symptoms or if you agree to hospital admission Prescriptions: Albuterol Inhaler [Ventolin Hfa Inhaler] 2 puff INHALATION RT-QID #1 puff Is patient prescribed a controlled substance at d/c from ED?: No Referrals: Ric Bailey MD [Primary Care Provider] - 1-2 days Time of Disposition: 14:25
[2020-03-22 14:48] VITALS: BP 195/94; PULSE 78; TEMP 98.4
== END 2020-03-22 14:48 | disposition home or self-care (01) ==
LOC: EC 11:34
DX: R06.02 Shortness of breath (principal); I10 Essential (primary) hypertension; I48.91 Unspecified atrial fibrillation; K21.9 Gastro-esophageal reflux disease without esophagitis; F41.9 Anxiety disorder, unspecified; Z79.01 Long term (current) use of anticoagulants; Z79.899 Other long term (current) drug therapy; Z87.891 Personal history of nicotine dependence
CPT/HCPCS: 36415; 71046; 80053; 81001; 83880; 84484; 85025; 85379; 85610; 85730; 93005; 99285

== ENCOUNTER → 2020-04-21 | Outpatient (CLI) | payer MEDICARE ==
[2020-04-21 12:33] VITALS: BP 152/75; PULSE 79; RESP 18; TEMP 97.7
--- NOTE | 2020-04-21 12:45 | P.PN ---
Progress Note - Text Progress Note Date: 04/21/20 This is for visit for this 80 years old female with a chronic history of mid back pain, is diagnosed with thoracic spondylosis with thoracic facet arthropathy, last months we have done on a field of the medial branch thoracic area, she reported that her pain completely gone, she is able to do activity of daily livings without difficulty , patient very satisfied with the result of the treatment and she will follow up in the pain clinic when necessary - PQRS measures = - Patient's medications are documented in the chart. -Tobacco use is negative and counseling.Given. -Patient's has received pneumococcal vaccine. -Advanced care planning discussed, patient not eligible. -Opiate contract not signed. -Pain positive and follow-up visit/procedure is scheduled. -Patient's blood pressure measured [ 152/75 ] , and documented in the record ,and patient will follow up with the primary care. -Patient's weight was measured and body mass index [ 35.5] above the normal limits and counseling was done. and patient instructed to follow-up with the primary care physician. -Patient was not identified as an unhealthy alcohol user
== END | disposition home or self-care (01) ==
LOC: PNWHC3 12:24
PROVIDERS: ATTEND Specialist
DX: M47.894 Other spondylosis, thoracic region (principal)
CPT/HCPCS: 99211

== ENCOUNTER → 2021-02-04 | Outpatient (CLI) | payer MEDICARE ==
--- NOTE | 2021-02-04 08:33 | US ---
EXAMINATION TYPE: US venous doppler duplex LE BI DATE OF EXAM: 02/04/2021 8:14 AM COMPARISON: NONE CLINICAL HISTORY: I82.40 Ervin LE DVT I82.40. Intermittent bilateral leg pain SIDE PERFORMED: Bilateral TECHNIQUE: The lower extremity deep venous system is examined utilizing real time linear array sonog [place] with graded compression, doppler sonography and color-flow sonography. VESSELS IMAGED: Common Femoral Vein Deep Femoral Vein Greater Saphenous Vein * Femoral Vein Popliteal Vein Small Saphenous Vein * Proximal Calf Veins (* superficial vessels) Right Leg: Appears negative for DVT Left Leg: Appears negative for DVT There was some intolerance to compression which may limit the exam somewhat, most notably the right f emoral vein. IMPRESSION: 1. Bilateral lower extremity ultrasound negative for deep venous thrombosis.
== END | disposition home or self-care (01) ==
LOC: RADUSWWP 07:33
PROVIDERS: ATTEND Internal Medicine Interventional Cardiology
DX: M79.604 Pain in right leg (principal); M79.605 Pain in left leg
CPT/HCPCS: 93970

== ENCOUNTER → 2021-03-16 | Outpatient (CLI) | payer MEDICARE ==
--- NOTE | 2021-03-16 10:16 | P.PAINPG ---
Subjective Progress Note Date: 03/16/21 Principal diagnosis: Thoracic back pain Mrs. Blackwood is a 81 -year-old pleasant female came to the [facility] pain clinic for admitted, and low thoracic pain . Patient has ongoing pain for many years. 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 Patient had right side thoracic radiofrequency ablation at T9-T10 and T10-T11 area which helped her tremendous pain for close to a year. Patient describes pain is aching, throbbing, constant type of pain. Thoracic pain is not radiating. Patient rated pain levels are 6 out of 10 in severity. With the help of medications pain levels are 6 out of 10 in severity. Activities making pain worse. Patient doesn't want any radiofrequency ablation at this time. Medications, resting, interventional procedures helping in relieving patient's pain. Patient pain some days better than others. Overall activities decreased secondary to pain. Because of the pain sometimes patient is feeling lack of sleep, interest, and energy. Denied any side effects with th e medications. Denied any bowel or bladder problems at this time. Patient denies any suicidal or homicidal ideations intent or plan. Patient denies any auditory or visual hallucinations. Patient denied any red flag symptoms related to pain. Objective - Exam General: Well-developed, well-nourished, no acute distress HEENT: Normocephalic, and atraumatic Neck: Supple, no neck swelling Psychiatric: Appropriate mood, and affect [employer]: No focal neurological deficits Musculoskeletal: Upper extremity: Normal strength, and range of motion. Sensation grossly intact Lower extremity: Normal strength, and range of motion, sensation grossly intact Thoracic spine: Noticed midthoracic kyphosis with abnormal posture. 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 And all questions were answered to the patient's satisfaction. #2 treatment plan agreement : Patient was thoroughly discussed regarding the treatment options, alternatives, and importance of exercises as tolerated. Patient clearly understood. #3 Patient was counseled on importance of regular exercise. Including ina chi, aerobic exercises as tolerated. Which helps for chronic pain, and overall well- being. #4 investigations: MAPS- reviewed , urine drug test-not done #5 diagnostic tests: None #6 consultation : None # 7 interventional procedures: Bilateral mid, and lower thoracic trigger point injections. Procedure, complications, alternatives discussed with the patient. Patient refuses to undergo for radiofrequency ablation at this time secondary to her busy work at home to take care of her . #8 medications No medications from the pain clinic # 9 patient was given a prescription for TENS unit's, and percussion massage device #10 disposition: scheduled to follow up with pain clinic in 4 weeks duration. Time with Patient: Less than 30 PQRS Measure Charge Sheet Measure #130: Documentation of Current Meds in Medical Chart: Patient's medications documented in chart Measure #226: Tobacco Use: Screen & Cessation Intervention: Pt not a tobacco user Measure #111: Pneumonia Vaccination: Pneumococcal vaccine administered or previously received Measure #47: Advance Care Plan: Advance care planning discussed & documented, plan or surrogate given Measure #412: Opioid Treatment Agreement: No documentation of signed opioid treatment agreement Measure #408: Opioid Therapy Follow-up Evaluation: Patient had NO f/u eval minimum every 3 months during opioid therapy Measure #317: Preventitive Care & Scrn High Bld Press & F/U: Pre-hypertensive or hypertensive BP documented, pt will f/u with PCP Measure #128: Body Mass Index (BMI) Screening & Follow-up: BMI documented ABOVE normal parameters - f/u documented Measure #131: Pain Assessment & Follow-up: Pain positive & plan documented Measure #431: Unhealthy Alcohol Use Preventative Care & Scrn: Patient not identified as an unhealthy alcohol user PQRS Narrative: Smoking Status Former smoker Pain Intensity [Right Medial 5 Back] Hx Alcohol Use (MH) No Home Medications: Ambulatory Orders PARoxetine [Paxil] 10 mg PO HS 10/09/19 Echinacea 800 mg PO DAILY PRN 10/16/19 Furosemide [Lasix] 20 mg PO QAM 02/18/20 atenoloL 25 mg PO HS 02/18/20 hydrALAZINE HCL 25 mg PO BID 02/18/20 Acetaminophen/Diphenhydramine [Tylenol PM 500-25mg] 1 tab PO HS PRN 03/14/21 Apixaban [Eliquis] 5 mg PO BID 03/14/21 HYDROcodone/APAP 5-325MG [[place] 5-325] 1 tab PO Q6H PRN 03/14/21 Immune Booster Otc 2 tab PO DAILY 03/14/21 Multivit-Min/Folic Acid/Biotin [Hair, Skin and Nails Softgel] 510 mcg PO DAILY 03/14/21 Controlled Substance Measures - Controlled Substance Measures Is patient prescribed a controlled substance at discharge?: No
[2021-03-16 10:19] VITALS: BP 150/76; PULSE 70; RESP 18
== END ==
LOC: PNWHC3 09:27
DX: M47.814 Spondylosis without myelopathy or radiculopathy, thoracic region (principal); M79.18 Myalgia, other site; M40.294 Other kyphosis, thoracic region; Z87.891 Personal history of nicotine dependence; Z88.6 Allergy status to analgesic agent
CPT/HCPCS: 99211

== ENCOUNTER 2021-04-26 09:38 | Day surgery (SDC) | payer MEDICARE ==
[2021-04-21 10:18] VITALS: BMI 33.1
[2021-04-26 10:18] VITALS: TEMP 98.8
[2021-04-26] MEDS ORDERED: ROPIVACAINE 5MG/ML 20ML VIAL ONE (11:01)
[2021-04-26] MEDS ORDERED: methylPREDNISolone ACETATE 40 MG/ML 1 ML VIAL ONE (11:01)
--- NOTE | 2021-04-26 11:19 | P.PCN ---
Date of Procedure: 04/26/21 Procedure(s) Performed: Procedure= trigger point injection thoracic area total of 8 trigger point injected, or on the right side thoracic paravertebral muscles and 4 on the left side thoracic paravertebral muscles Preoperative diagnosis= 1- myofascial pain syndrome thoracic area 2-Thoracic degenerative disc disease 3-Thoracic spondylosis with facet arthropathy Postoperative diagnosis=Same as preop Diagnosis . Complication = none Condition= stable Anesthesia=none . Indication for the procedure= patient complaining of mid back pain , examination was positive for multiple trigger point identified in the thoracic area. Description of the procedure= procedure risk and benefits discussed with the patient, including but not limited, risk of infection and bleeding, and ALLERGIC reaction to the medication and not complete pain relief and patient agreed with the preceding patient taken to the operating room, placed in prone position or standard monitors applied to the patient then after back prepped with chlorhexidine 3 times , total of 4 trigger point identified in the right side thoracic para spinal muscles, and 4 on the left side thoracic paraspinal muscles ,each one of them ,injected with 2 mL of the mixture of ropivacaine 0.5% 16 ML and 40 mg of Depo-Medrol mixed together and 2 ML of the mixture injected at each trigger point after negative aspiration, injection done using 25-gauge needle, and there was no paresthesia during the injection, patient will follow up in the pain clinic in a few weeks, and if she continued to have pain, then will consider targeting the medial branch thoracic area, if she has no benefit from the injection done today
[2021-04-26 11:24] VITALS: RESP 16
[2021-04-26 11:32] VITALS: PULSE 66
[2021-04-26 11:39] VITALS: BP 176/69
== END 2021-04-26 11:46 | disposition home or self-care (01) ==
LOC: ORPAIN 09:38
PROVIDERS: ATTEND Specialist
DX: M51.36 Other intervertebral disc degeneration, lumbar region (principal); M47.814 Spondylosis without myelopathy or radiculopathy, thoracic region; I25.10 Atherosclerotic heart disease of native coronary artery without angina pectoris; Z88.5 Allergy status to narcotic agent
CPT/HCPCS: 20553; J1030; J2795

== ENCOUNTER → 2023-02-01 | Outpatient (CLI) | payer MEDICARE ==
[2023-02-01 16:45] LABS: Hepatitis B Surface AB- Quant 3.5 mIU/mL; Hepatitis B Surface Antigen Nonreactive; Hepatitis C IgG Antibody Nonreactive
[2023-02-01 17:23] LABS: Basophils # (A) 0.04 X 10*3/uL (0.00-0.10); Basophils % (A) 0.8 %; Eosinophils # (A) 0.13 X 10*3/uL (0.04-0.35); Eosinophils % (A) 2.5 %; HCT 38.5 % (37.2-46.3); HGB 12.5 d/dL (12.0-15.0); Lymphocytes # (A) 1.12 X 10*3/uL (0.90-5.00); Lymphocytes % (A) 21.5 %; MCH 30.3 pg (27.0-32.0); MCHC 32.5 d/dL (32.0-37.0); MCV 93.4 FL (80.0-97.0); Mean Platelet Volume 9.4 FL (9.5-12.2); Monocytes # (A) 0.52 X 10*3/uL (0.20-1.00); NRBC Per 100 WBC 0 X 10*3/uL (0.00-0.01); Neutrophils # (A) 3.38 X 10*3/uL (1.80-7.70); Platelet Count 339 X 10*3/uL (140-440); RBC 4.12 X 10*6/uL (4.10-5.20); RDW 13.3 % (11.5-14.5)
[2023-02-02 15:26] LABS: Hepatitis B Virus DNA Not detected (Not detected); Hepatitis B Virus DNA, Quant <10 IU/mL (<10); Log HBV IU/mL <1.00 (<1.00)
== END | disposition home or self-care (01) ==
LOC: LABWHC1 10:38
PROVIDERS: ATTEND Dermatology MOHS-Micrographic Surgery
DX: L40.0 Psoriasis vulgaris (principal); Z79.899 Other long term (current) drug therapy
CPT/HCPCS: 36415; 82565; 85025; 86480; 86706; 86803; 87340; 87517

== ENCOUNTER → 2023-04-23 | Outpatient (CLI) | payer MEDICARE ==
[2023-04-23 15:09] LABS: Basophils # (A) 0.05 X 10*3/uL (0.00-0.10); Eosinophils # (A) 0.14 X 10*3/uL (0.04-0.35); Eosinophils % (A) 2.9 %; HCT 38.1 % (37.2-46.3); HGB 12.3 g/dL (12.0-15.0); Lymphocytes # (A) 1.34 X 10*3/uL (0.90-5.00); Lymphocytes % (A) 27.8 %; MCH 30.8 pg (27.0-32.0); MCHC 32.3 g/dL (32.0-37.0); MCV 95.3 FL (80.0-97.0); Mean Platelet Volume 9.8 FL (9.5-12.2); Monocytes % (A) 10.4 %; NRBC Per 100 WBC 0 X 10*3/uL (0.00-0.01); Neutrophils # (A) 2.78 X 10*3/uL (1.80-7.70); Neutrophils % (A) 57.7 %; Platelet Count 315 X 10*3/uL (140-440); RDW 13.2 % (11.5-14.5); WBC 4.82 X 10*3/uL (4.50-10.00)
[2023-04-23 15:11] LABS: ALT 19 U/L (8-44); AST 25 U/L (13-35)
== END | disposition home or self-care (01) ==
LOC: LABWHC1 10:42
PROVIDERS: ATTEND Dermatology MOHS-Micrographic Surgery
DX: L40.0 Psoriasis vulgaris (principal)
CPT/HCPCS: 36415; 84450; 84460; 85025

== ENCOUNTER → 2023-11-02 | Outpatient (CLI) | payer MEDICARE ==
--- NOTE | 2023-11-26 04:13 | BD ---
EXAMINATION TYPE: Axial Bone Density DATE OF EXAM: 11/02/2023 CLINICAL HISTORY: 83 years old Female. ICD-10 CODE: M81.0 AGE-RELATED OSTEOPOROSIS Height: 66 Weight: 199.4 FRAX RISK QUESTIONS: Alcohol (3 or more units per day): no Family History (Parent hip fracture): no Glucocorticoids (More than 3mos): no (Ex: prednisone, prednisolone, methylprednisolone, dexamethasone, and hydrocortisone). History of Fracture in Adulthood: ankle Secondary Osteoporosis: 1. Type 1 Diabetes: no 2. Hyperthyroidism: no 3. Menopause before 45: no 4. Malnutrition: no 5. Chronic liver disease: no Rheumatoid Arthritis: no Current Tobacco Use: no RISK FACTORS HISTORY OF: Hip Fracture (Right/Left): no Spine Fracture: no History of Wrist Fracture: no Surgery to Spine/Hip(right/left)/Wrist (right/left): no MEDICATIONS: Thyroid Medications: no Osteoporosis Medications: no EXAM MEASUREMENTS: Bone mineral densitometry was performed using the [employer] System. Bone mineral density as measured about the Lumbar spine is: ----- L1-L4(G/cm2): 1.196 T Score Values are as follows: ----- L1: -0.1 ----- L2: 0.9 ----- L3: -0.2 ----- L4: -0.1 ----- L1-L4: 0.1 Z Score Values are as follows: ----- L1: 1.0 ----- L2: 2.0 ----- L3: 0.8 ----- L4: 1.0 ----- L1-L4: 1.2 Bone mineral density has: decreased -14.6 % since study of: 05/03/2016 Bone mineral density about the R hip (g/cm2): 0.839 Bone mineral density about the L hip (g/cm2): 0.903 T Score values are as follows: -----R Neck: -1.4 -----L Neck: -0.9 -----R Total: -1.3 -----L Total: -0.8 Z Score values are as follows: -----R Neck: 0.4 -----L Neck: 0.8 -----R Total: 0.2 -----L Total: 0.8 Bone mineral density has: decreased -14.9 % since study of: FRAX%s: The graph provided illustrates a 18.0% chance for a major osteoporotic fx and a 4.0% chance f or the hips probability for fx in 10 years time. IMPRESSION: Osteopenia (T Score between -2.5 and -1). There is slightly increased risk of fracture and the patient may be considered for treatment. Re-Screen 2-5 years. NOTE: T-SCORE=SD OF THE YOUNG ADULT MEAN.
== END | disposition home or self-care (01) ==
LOC: RADBDWWP 15:51
PROVIDERS: ATTEND Internal Medicine Geriatric Medicine
DX: M81.0 Age-related osteoporosis without current pathological fracture (principal); M85.89 Other specified disorders of bone density and structure, multiple sites
CPT/HCPCS: 77080

== ENCOUNTER → 2024-06-25 | Outpatient (CLI) | payer MEDICARE ==
[2024-06-25 15:37] LABS: Hepatitis B Surface Antigen Nonreactive (Nonreactive); Hepatitis C IgG Antibody Nonreactive (Nonreactive)
[2024-06-25 15:47] LABS: ALT 21 U/L (8-44); AST 28 U/L (13-35)
[2024-06-25 16:01] LABS: Basophils # (A) 0.06 X 10*3/uL (0.00-0.10); Basophils % (A) 1.2 %; Eosinophils # (A) 0.21 X 10*3/uL (0.04-0.35); Eosinophils % (A) 4.1 %; HCT 37.5 % (37.2-46.3); Lymphocytes # (A) 1.28 X 10*3/uL (0.90-5.00); Lymphocytes % (A) 24.7 %; MCH 30.2 pg (27.0-32.0); MCV 94.5 FL (80.0-97.0); Mean Platelet Volume 10.2 FL (9.5-12.2); Monocytes % (A) 11.6 %; NRBC Per 100 WBC 0 X 10*3/uL (0.00-0.01); Neutrophils # (A) 3.02 X 10*3/uL (1.80-7.70); Neutrophils % (A) 58.2 %; Platelet Count 267 X 10*3/uL (140-440); RBC 3.97 X 10*6/uL (4.10-5.20); RDW 13.3 % (11.5-14.5); WBC 5.18 X 10*3/uL (4.50-10.00)
[2024-06-25 16:14] LABS: Hepatitis B Surface AB- Quant 3.5 mIU/mL
== END | disposition home or self-care (01) ==
LOC: LABWHC1 09:55
PROVIDERS: ATTEND Internal Medicine
DX: L40.0 Psoriasis vulgaris (principal); L81.4 Other melanin hyperpigmentation; L82.1 Other seborrheic keratosis; D22.5 Melanocytic nevi of trunk; D48.2 Neoplasm of uncertain behavior of peripheral nerves and autonomic nervous system; Z79.899 Other long term (current) drug therapy
CPT/HCPCS: 36415; 82565; 84450; 84460; 85025; 86480; 86704; 86706; 86803; 87340